=== PATIENT | male | born 1965 | race African-American/Black ===

== ENCOUNTER 2017-12-11 11:41 | Emergency (ER) | payer OTHER, SELFPAY ==
[2017-12-11 12:00] VITALS: BP 135/80; PULSE 81; RESP 17; TEMP 36.1; O2SAT 100
[2017-12-11 12:01] VITALS: BP 130/81; PULSE 81; RESP 17; TEMP 36.1; O2SAT 100; BMI 33.0
--- NOTE | 2017-12-11 12:55 | ED.DENTAL ---
HPI - Dental/Oral <GIL Vincent - Last Filed: 12/11/17 13:22> General Chief complaint: Dental/Oral Stated complaint: TOOTH PAIN Time Seen by Provider: 12/11/17 12:55 Source: patient Mode of arrival: ambulatory Limitations: no limitations History of Present Illness HPI Narrative: L lower molar starting hurting about 1 week ago MD Complaint: tooth pain Location: Tooth # (18) Onset (ago): week(s) (1) Duration: constant Severity: moderate Relieving factors: nothing Exacerbating factors: chewing Context: history of dental caries (cavity was filled in this tooth years ago) Related Data Home Medications Medication Instructions Recorded Confirmed metformin [Glucophage] 1 tab PO TID #0 05/06/17 triamcinolone acetonide 1 applic TOPICAL TID 14 Days #0 05/06/17 Previous Rx's Medication Instructions Recorded prednisone 50 mg PO AMCC 3 Days #0 tab 11/17/15 clindamycin HCl 300 mg PO Q6H #28 cap 07/20/16 tramadol 50 mg PO Q6HP PRN #20 tab 07/20/16 penicillin V potassium 500 mg PO QID #40 tab 12/11/17 tramadol [Ultram] 50 mg PO Q6H PRN #20 tab 12/11/17 Allergies Allergy/AdvReac Type Severity Reaction Status Date / Time lisinopril [LISINOPRIL] Allergy Unknown Verified 12/11/17 12:01 Review of Systems <GIL Vincent - Last Filed: 12/11/17 13:22> Constitutional Reports as per HPI, Reports system reviewed and no additional complaints, except as docu, Denies fatigue, Denies headache(s) and Denies poor appetite Eyes Reports system reviewed and no additional complaints, except as docu ENT Ears, Nose, Mouth, and Throat: Reports system reviewed and no additional complaints, except as docu, Reports as per HPI, Denies bleeding gums, Reports dental pain, Denies dysphagia, Denies ear discharge, Denies otalgia, Reports facial pain, Denies headache(s), Denies mouth lesions, Denies mouth pain, Denies nasal congestion, Denies nasal discharge, Denies neck mass, Denies neck pain, Denies nose pain, Denies post nasal drip, Reports sinus pain, Reports sinus pressure and Denies sore throat Respiratory Reports system reviewed and no additional complaints, except as docu and Denies cough Gastrointestinal Gastrointestinal: Denies dysphagia Musculoskeletal Reports as per HPI and Denies neck pain Neurologic Denies headache(s) Endocrine Denies fatigue and Denies flushing Exam <GIL Vincent - Last Filed: 12/11/17 13:22> Initial Vital Signs Initial Vital Signs: Vital Signs Temperature 97.0 F L 12/11/17 12:00 Pulse Rate 81 12/11/17 12:00 Respiratory Rate 17 12/11/17 12:00 Blood Pressure 135/80 12/11/17 12:00 Pulse Oximetry 100 12/11/17 12:00 Const General: cooperative, healthy appearing, comfortable, well developed and well groomed Nutritional Appearance: average body habitus and well nourished Orientation: alert HENMT Head: normal to inspection and normocephalic Ears: hearing grossly normal bilaterally, external ears normal and TM's normal bilaterally Nose: external nose normal, nares normal and nasal mucous membranes and turbinates normal Face and sinus: normal facial exam, sinuses tender and face asymmetric Mouth: oral mucosae normal, lip normal, tongue normal, oropharynx normal and moist mucous membranes Teeth and gingiva: dentition normal, gingiva normal and other (no obvious signs of infection in affected tooth, no gum swelling, obvious caries, filling in place) Throat: posterior oropharynx normal, tonsils normal and uvula midline Eyes General: appearance normal, both eyes and all related structures Eyelids: eyelids normal Conjunctivae: conjunctivae normal Sclera: sclerae normal Pupils: PERRL EOM: EOM intact bilaterally Neck Neck: normal visual inspection, full ROM, no meningeal signs, trachea midline, supple and No lymphadenopathy Resp Effort & Inspection: normal respiratory effort and able to speak in complete sentences Back/Spine/Pelvis Cervical Spine: cervical ROM normal Thoracic/Lumbar Spine: thoraco-lumbar ROM limited Skin General: turgor normal, dry skin and warm Neuro General: alert, awake and oriented x3 Cranial Nerves: CN's II-XI intact bilaterally Cognition: normal cognition Speech: speech normal Gait: normal gait Motor: muscle tone normal throughout Sensory Exam: no sensory deficits noted Extrem General: full ROM Psych Appearance: grossly normal and well kempt Mental Status: mental status grossly normal Speech and Movement: speech and movement normal Mood: congruent mood Affect: normal affect Attitude: cooperative Thought Process: normal Thought Content: normal Judgment: judgment good <Molly Gonzalez DO - Last Filed: 12/12/17 07:46> Initial Vital Signs Initial Vital Signs: Vital Signs Temperature 97.0 F L 12/11/17 12:00 Pulse Rate 81 12/11/17 12:00 Respiratory Rate 17 12/11/17 12:00 Blood Pressure 135/80 12/11/17 12:00 Pulse Oximetry 100 12/11/17 12:00 Course <GIL Vincent - Last Filed: 12/11/17 13:22> Vital Signs - 8 hr 12/11/17 12:00 12/11/17 12:01 Temperature 97.0 F L 97.0 F L Pulse Rate 81 81 Respiratory Rate 17 17 Blood Pressure 130/81 Blood Pressure [Right Arm] 135/80 Pulse Oximetry 100 100 <Molly Gonzalez DO - Last Filed: 12/12/17 07:46> Vital Signs - 8 hr 12/11/17 12:00 12/11/17 12:01 Temperature 97.0 F L 97.0 F L Pulse Rate 81 81 Respiratory Rate 17 17 Blood Pressure 130/81 Blood Pressure [Right Arm] 135/80 Pulse Oximetry 100 100 MDM - Dental/Oral <GIL Vincent - Last Filed: 12/11/17 13:22> Differential Diagnosis Likely gingival abscess, dental caries, toothache, dental abscess and fracture of tooth Discharge Plan Departure Patient Disposition: Home Clinical Impression: Pain, dental Discharge Date/Time: 12/11/17 13:48 Interventions: ED Discharge Assessment Last Done: 12/11/17 13:48 Instructions: DI for Dental Pain Prescriptions: New tramadol [Ultram] 50 mg tablet 50 mg PO Q6H PRN (Reason: pain) Qty: 20 RF: 0 penicillin V potassium 500 mg tablet 500 mg PO QID Qty: 40 RF: 0 No Action prednisone 50 MG tablet 50 mg PO AMCC 3 Days Qty: 0 RF: 0 clindamycin HCl 300 MG capsule 300 mg PO Q6H Qty: 28 RF: 0 tramadol 50 MG tablet 50 mg PO Q6HP PRNQty: 20 RF: 0 triamcinolone acetonide 0.5 % cream 1 applic Topical TID 14 Days Qty: 0 RF: 0 metformin [Glucophage] 500 MG tablet 1 tab PO TID Qty: 0 RF: 0 Referrals: Pratibha,Octavio, CONRADO [Physician] - Alexis Carbajal DDS [Non-Staff] - Provider,Conversion [Non-Staff] - Cisco Schroeder DDS [Physician] - (in 3-5 days ) <Molly Gonzalez DO - Last Filed: 12/12/17 07:46> Cosign ED Attending Mayra Attestation: I was immediately available in the department for consultation. Documentation has been reviewed. I agree with assessment and plan.
== END 2017-12-11 13:48 | disposition home or self-care (01) ==
PROVIDERS: Emergency Provider Nurse Practitioner
DX: K08.89 Other specified disorders of teeth and supporting structures (principal)
CPT/HCPCS: 99282

== ENCOUNTER → 2018-07-21 09:31 | Outpatient (CLI) | payer OTHER, SELFPAY ==
--- NOTE | 2018-07-21 09:34 | DI.RAD.S_ITS ---
PROCEDURE: XR LUMBAR SPINE 2-3V INDICATIONS: Chronic back pain, shoulder pain TECHNIQUE: 3 views of the lumbar spine were acquired. COMPARISON: None. FINDINGS: Bones: 5 [id number] vertebrae are present. There is normal bony alignment. No vertebral body compression fractures. No suspicious bony lesions. Mild to moderate multilevel endplate spur formation anteriorly. Mild to moderate disc height loss at multiple levels, most significant at L5-S1. Moderate to severe facet hypertrophy and sclerosis L4-5 and L5-S1. Soft tissues: Overlying bowel gas pattern is normal. No suspicious soft tissue calcifications. Mild atherosclerosis IMPRESSION: Mild to moderate multilevel endplate and disc degenerative change. Moderate lower lumbar facet arthropathy. Dictated by: Martine Smart M.D. on 07/21/2018 at 11:59 Approved by: Martine Smart M.D. on 07/21/2018 at 12:01
--- NOTE | 2018-07-21 09:34 | DI.RAD.S_ITS ---
PROCEDURE: XR SHOULDER RT MIN 2V INDICATIONS: Chronic back pain, shoulder pain TECHNIQUE: 3 views of the shoulder were acquired. COMPARISON: None. FINDINGS: Bones: No fractures or dislocations. Mild irregular contour of the glenoid surface and moderate humeral head spurring.. No suspicious bony lesions. Visualized ribs appear intact. Soft tissues: No suspicious soft tissue calcifications. Trace calcifications adjacent to the greater tuberosity at the rotator cuff insertion IMPRESSION: Mild glenohumeral joint OsteoArthritic change. Trace changes of the greater tuberosity suggesting calcific tendinitis of the rotator cuff tendons. Dictated by: Martine Smart M.D. on 07/21/2018 at 11:58 Approved by: Martine Smart M.D. on 07/21/2018 at 11:59
[2018-07-21 10:28] LABS: Add Manual Diff / Slide Review NO; Basophils Absolute Auto 100 /uL (0-100); Basophils Percent Auto 1.3 % (0-2); Eosinophils Absolute Auto 300 /uL (0-450); Eosinophils Percent Auto 3.5 % (2-4); Hematocrit 48.7 % (41-53); Hemoglobin 16.2 g/dL (13.5-17.5); Lymphocytes Absolute Auto 1900 /uL (1100-4500); Lymphocytes Percent Auto 26.4 % (25-40); Mean Corpuscular HGB Conc 33.3 % (30-36); Mean Corpuscular Hemoglobin 30.5 PG (26-34); Mean Corpuscular Volume 91.7 fL (80-100); Monocytes Absolute Auto 500 /uL (0-900); Monocytes Percent Auto 7.5 % (3-14); Neutrophils Absolute Auto 4400 /uL (1500-7000); Neutrophils Percent Auto 61.3 % (50-75); Platelet Count 266 X10^3/uL (150-400); Red Blood Cell Count 5.31 X10^6/uL (4.5-5.9); Red Cell Distribution Width 13.5 % (11.6-14.8); White Blood Cell Count 7.2 X10^3/uL (4.5-11.0)
[2018-07-21 10:37] LABS: Hemoglobin A1C% w Est Avg Glu 6.5 % (4.0-6.0)
[2018-07-21 10:51] LABS: Alanine Aminotransferase 42 IU/L (21-72); Albumin 4.4 g/dL (3.5-5.0); Albumin Globulin Ratio 1.3 (1.0-2.8); Alkaline Phosphatase 92 U/L (38-126); Aspartate Aminotransferase 42 IU/L (17-59); Bilirubin Total 0.8 mg/dL (0.2-1.3); Blood Urea Nitrogen 14 mg/dL (9-20); Calcium 9.3 mg/dL (8.4-10.2); Carbon Dioxide 28 mmol/L (22-32); Chloride 103 mmol/L (98-107); Cholesterol 154 mg/dL (140-199); Estimated Glomerular Filt Rate > 60.0 mL/min (>60); Globulin 3.5 g/dL (1.7-4.1); Glucose 124 mg/dL (70-100); HDL Cholesterol 41 mg/dL (40-60); HEMOLYSIS < 15 (0-50); LDL Cholesterol Calculated 78 mg/dL (<100); Potassium 4.5 mmol/L (3.4-5.1); Sodium 141 mmol/L (137-145); Total Protein 7.9 g/dL (6.3-8.2); Triglycerides 175 mg/dL (35-150)
[2018-07-21 11:19] LABS: Thyroid Stimulating Hormone 0.79 uIU/mL (0.47-4.68)
[2018-07-21 11:39] LABS: Appearance Urine UA CLEAR; Bilirubin Urine UA NEGATIVE (NEGATIVE); Color Urine UA YELLOW; Glucose Urine UA NEGATIVE (Negative); Ketones Urine UA TRACE (NEGATIVE); Leukocyte Esterase Urine UA NEGATIVE (NEGATIVE); Nitrite Urine UA NEGATIVE (Negative); Occult Blood Urine UA NEGATIVE (Negative); Protein Urine UA 1+ (Negative); Specific Gravity Urine UA 1.025 (1.000-1.035); Urobilinogen Urine UA 0.2 E.U./dL (0.2); pH Urine UA 6.5 (4.5-8.0)
== END ==
PROVIDERS: PCP Family Medicine; Visit Provider Family Medicine
DX: M25.511 Pain in right shoulder (principal); M19.011 Primary osteoarthritis, right shoulder; M54.9 Dorsalgia, unspecified; M47.816 Spondylosis without myelopathy or radiculopathy, lumbar region; M47.817 Spondylosis without myelopathy or radiculopathy, lumbosacral region; I10 Essential (primary) hypertension; R10.9 Unspecified abdominal pain; E78.5 Hyperlipidemia, unspecified; E11.9 Type 2 diabetes mellitus without complications; G89.29 Other chronic pain; Z51.81 Encounter for therapeutic drug level monitoring
CPT/HCPCS: 36415; 72100; 73030; 80053; 80061; 81003; 83036; 84443; 85025

== ENCOUNTER → 2018-08-12 10:49 | Outpatient (CLI) | payer OTHER, SELFPAY ==
--- NOTE | 2018-08-12 10:55 | DI.RAD.S_ITS ---
PROCEDURE: XR HAND LT MIN 3V INDICATIONS: pain in hands TECHNIQUE: 3 views of the hand(s) acquired. COMPARISON: None. FINDINGS: Bones: No fractures or dislocations. Carpal bones are normally aligned. No suspicious bony lesions. Moderate degenerative changes of the left hand are present, most pronounced involving the interphalangeal joints of the first and second digits. Moderate degenerative changes involving the basal joint of the thumb are present. There mild degenerative changes of the distal radial ulnar joint. Soft tissues: No suspicious soft tissue calcifications. IMPRESSION: Moderate degenerative changes of the left hand are most pronounced involving the first and second digits. Dictated by: Ron Covington M.D. on 08/12/2018 at 11:14 Approved by: Ron Covington M.D. on 08/12/2018 at 11:15
--- NOTE | 2018-08-12 10:55 | DI.RAD.S_ITS ---
PROCEDURE: XR HAND RT MIN 3V INDICATIONS: pain in hands TECHNIQUE: 3 views of the hand(s) acquired. COMPARISON: None. FINDINGS: Bones: No fractures or dislocations. Carpal bones are normally aligned. No suspicious bony lesions. Moderate degenerative changes of the right hand are identified involving the interphalangeal joint, basal joint of the thumb, and distal radioulnar joint. These findings are more prominent involving the interphalangeal joints of the third and fourth digits. Soft tissues: No suspicious soft tissue calcifications. IMPRESSION: 1. Moderate degenerative changes of the right hand are most pronounced involving the interphalangeal joints of the third and fourth digits. 2. No fractures. Dictated by: Ron Covington M.D. on 08/12/2018 at 10:29 Approved by: Ron Covington M.D. on 08/12/2018 at 10:30
== END ==
PROVIDERS: PCP Family Medicine; Visit Provider Family Medicine
DX: M79.642 Pain in left hand (principal); M79.641 Pain in right hand; M19.042 Primary osteoarthritis, left hand; M19.041 Primary osteoarthritis, right hand
CPT/HCPCS: 73130

== ENCOUNTER 2019-03-26 15:47 | Emergency (ER) | payer OTHER, SELFPAY ==
[2019-03-26 15:49] VITALS: BP 150/82; PULSE 72; RESP 13; TEMP 36.8; O2SAT 98
[2019-03-26 16:53] VITALS: BP 138/90; PULSE 64; RESP 20; O2SAT 99
--- NOTE | 2019-03-26 17:12 | ED_ITS ---
HPI - Fall <TAI Rouse-BC - Last Filed: 03/26/19 17:24> General Chief Complaint: Fall Stated Complaint: Fell and Hit Head Time Seen by Provider: 03/26/19 16:11 Source: patient Mode of arrival: Ambulatory Limitations: no limitations History of Present Illness HPI Narrative: The patient is a 53-year-old male current smoker with history of hypertension who presents with a chief complaint of a fall this morning. He states he slipped on the ice landed on his back hitting his head. He denies any neck or back pain, and states he has been working since these falls. He states that the fall happened approximately 730 this morning. He states he has worked all day since. He denies any seizures, confusion, nausea vomiting, states that he might have lost consciousness for a few seconds he states that his memories of the event are fuzzy. Related Data Home Medications Medication Instructions Recorded Confirmed hydrochlorothiazide 12.5 mg tablet 12.5 mg PO DAILY 07/18/18 03/26/19 losartan 50 mg tablet 50 mg PO DAILY 07/18/18 03/26/19 metformin 500 mg tablet 500 mg PO BID 07/18/18 03/26/19 simvastatin 40 mg tablet 40 mg PO BEDTIME 07/18/18 03/26/19 atenolol 50 mg PO DAILY 03/26/19 03/26/19 sildenafil [Viagra] 25 mg PO PRN PRN 03/26/19 03/26/19 Previous Rx's Medication Instructions Recorded meloxicam 15 mg tablet 15 mg PO DAILY #30 tab 08/09/18 Allergies Allergy/AdvReac Type Severity Reaction Status Date / Time lisinopril [LISINOPRIL] AdvReac Mild cough Verified 08/09/18 15:40 Review of Systems <TAI Rouse-BC - Last Filed: 03/26/19 17:24> Review of Systems Narrative: GENERAL: Denies chills, fatigue, malaise, fever, sweats. HEENT: Denies sinus pain, ear pain, sore throat, difficulty swallowing, dizziness. RESPIRATORY: Denies dyspnea, cough, wheezing, hemoptysis, sputum. CARDIOVASCULAR: Denies chest pain, palpitations, orthopnea, edema, GASTROINTESTINAL: Denies nausea, vomiting, abdominal pain, diarrhea, constipation, melena. : Denies dysuria, frequency, incontinence, hematuria, urinary retention. MUSCULOSKELETAL: denies weakness, joint pain, or bony pain SKIN: Denies rash, skin lesions, or other NEUROLOGIC: See HPI PSYCHIATRIC: No concerning psychosocial issues. 12 point review of systems is negative except for those stated above Patient History <Ellen CotoFLOYD andersen - Last Filed: 03/26/19 17:24> Social History Smoking Status: Current every day smoker Tobacco: How many years used: 32 alcohol intake: current (Rarely) Smoking Status: Current every day smoker Substance Use Type: does not use Exam <Ellen CotoFLOYD andersen - Last Filed: 03/26/19 17:24> Narrative Exam Narrative: GENERAL: This is a well-nourished, well-developed patient, in no acute distress HEAD: Atraumatic. Normocephalic. No temporal or scalp tenderness. EYES: Pupils equal round and reactive. Extraocular motions intact. No scleral icterus. No injection or drainage. ENT: Nose without bleeding, purulent drainage or septal hematoma. Throat without erythema, tonsillar hypertrophy or exudate. Uvula midline. Airway patent. NECK: Trachea midline. No JVD or lymphadenopathy. Supple, nontender, no meningeal signs. CARDIOVASCULAR: Regular rate and rhythm RESPIRATORY: NO COUGH. NO INCREASED RESPIRATORY EFFORT. NO ACCESSORY MUSCLE USE. EXTREMITIES: No clubbing, cyanosis, or edema. No joint tenderness, effusion, or edema noted. BACK: Nontender without deformity or crepitance. No flank tenderness. No pain to CT or L-spine palpation. NEURO: AOx3. Interactive. Strength is equal upper lower extremities bilaterally. No gross cranial nerve deficit. Able to spell WORLD backwards. SKIN: No rash or erythema. No Ortiz signs. No periorbital ecchymosis. Visual ecchymosis laceration or abrasion noted on head or back. Initial Vital Signs Initial Vital Signs: Vital Signs Temperature 98.3 F 03/26/19 15:49 Pulse Rate 72 03/26/19 15:49 Respiratory Rate 13 03/26/19 15:49 Blood Pressure 150/82 H 03/26/19 15:49 Pulse Oximetry 98 03/26/19 15:49 <Molly Gonzalez DO - Last Filed: 03/27/19 09:11> Initial Vital Signs Initial Vital Signs: Vital Signs Temperature 98.3 F 03/26/19 15:49 Pulse Rate 72 03/26/19 15:49 Respiratory Rate 13 03/26/19 15:49 Blood Pressure 150/82 H 03/26/19 15:49 Pulse Oximetry 98 03/26/19 15:49 Scores <FLOYD Rouse - Last Filed: 03/26/19 17:24> GCS [place] coma scale eye opening: Spontaneous [place] coma scale verbal response: Orientated [place] coma scale motor response: Obey commands [place] coma scale total score: 15 Nexus Score for C-Spine Focal Neurologic deficit present: No Midline spinal tenderness present: No Altered level of conciousness present: No Intoxication present: No Distracting Injury Present: No Nexus Criteria for C-spine: 0 Course <FLOYD Rouse - Last Filed: 03/26/19 17:24> Vital Signs Vital signs: Vital Signs - 8 hr 03/26/19 15:49 03/26/19 16:53 Temperature 98.3 F Pulse Rate 72 64 Respiratory Rate 13 20 Blood Pressure 150/82 H Blood Pressure [Right Arm] 138/90 Pulse Oximetry 98 99 <Molly Gonzalez DO - Last Filed: 03/27/19 09:11> Vital Signs Vital signs: Vital Signs - 8 hr 03/26/19 15:49 03/26/19 16:53 Temperature 98.3 F Pulse Rate 72 64 Respiratory Rate 13 20 Blood Pressure 150/82 H Blood Pressure [Right Arm] 138/90 Pulse Oximetry 98 99 MDM - Fall <FLOYD Rouse - Last Filed: 03/26/19 17:24> MDM Narrative Medical decision making narrative: The patient is a 53-year-old male who presents with a chief complaint of a ground level fall and hitting his head at 7:30 a.m. this morning. Questionable LOC. The patient is alert oriented, GCS 15, C-spine clear by nexus criteria. His exam and history does correlate with a concussion. However patient does not want a head CT at this point time, I do not see any red flags that require head CT at this point time. I discussed at length the importance of follow-up with his primary care provider, the importance of brain rest, monitor for neurological changes, and coming back to the emergency department for any acute concerns. Patient has no questions or concerns upon discharge and states understanding of return precautions as well as follow-up care. Discharge Plan Departure Patient Disposition: Home Clinical Impression: Concussion with loss of consciousness Qualifiers: Encounter type: initial encounter Qualified Code(s): S06.0X9A - Concussion with loss of consciousness of unspecified duration, initial encounter Discharge Date/Time: 03/26/19 17:28 Instructions: DI for Concussion, True or False: A Person With a Serious Head Injury or Concussion Should Be , How to Prevent Falls, DI for Postconcussion Syndrome Activity Restrictions/Additional Instructions: Your symptoms correlate with concussion He did not want a head CT today, I do not see any red flags to get 1 at this point time. Please monitor for acute changes such as neurological changes, incontinence of bowel, incontinence of bladder, seizure activity etcetera. Please come back to the emergency department for any acute concerns rodgers As I discussed the most important thing for use brain rest at this point time. Please follow up with primary care provider in the next few days. If they do not see [facility] [email or web address] claims, you can contact [facility] [email or web address] for a follow-up provider Please go home and rest. I've given you a note for few days off of work. Prescriptions: No Action losartan 50 mg tablet 50 mg PO DAILY RF: 0 simvastatin 40 mg tablet 40 mg PO BEDTIME RF: 0 hydrochlorothiazide 12.5 mg tablet 12.5 mg PO DAILY RF: 0 metformin 500 mg tablet 500 mg PO BID RF: 0 meloxicam [Mobic] 15 mg tablet 15 mg PO DAILY Qty: 30 RF: 2 sildenafil [Viagra] 25 mg tablet 25 mg PO PRN PRN (Reason: Erectile Dysfunction) RF: 0 atenolol 50 mg tablet 50 mg PO DAILY RF: 0 Referrals: Lenora,Lin, DO [Primary Care Provider] - Stand Alone Forms: Work Release Note
== END 2019-03-26 17:28 | disposition home or self-care (01) ==
PROVIDERS: Emergency Provider Nurse Practitioner Family; PCP Family Medicine
DX: S06.0X9A Concussion with loss of consciousness of unspecified duration, initial encounter (principal); W00.0XXA Fall on same level due to ice and snow, initial encounter; Y99.0 Civilian activity done for income or pay
CPT/HCPCS: 99281; 99282

== ENCOUNTER 2019-12-15 17:27 | Emergency (ER) | payer OTHER, SELFPAY ==
[2019-12-15 17:39] VITALS: BP 135/79; PULSE 83; RESP 15; TEMP 36.6; O2SAT 98; BMI 33.7
--- NOTE | 2019-12-15 18:26 | ED.URI ---
HPI - URI/Sore Throat General Chief Complaint: Upper Respiratory Symptoms Stated Complaint: Runny Nose, Scratchy Throat,Coughing Time Seen by Provider: 12/15/19 18:05 Source: patient Mode of arrival: Ambulatory Limitations: no limitations History of Present Illness HPI Narrative: 54-year-old daily smoker with noncontributory medical history presents with a chief complaint of runny nose, sneezing, scratchy throat and a dry hacking cough since this morning. Denies any fever, body aches or chills. He has had no nausea, vomiting or diarrhea. MD Complaint: cough, sore throat, rhinorrhea and nasal congestion Onset (ago): hour(s) Duration: constant Severity: moderate Relieving factors: nothing Exacerbating factors: nothing Description of mucous: clear Able to tolerate fluids by mouth: Yes Associated symptoms: cough Treatments prior to arrival: none Related Data Home Medications Medication Instructions Recorded Confirmed hydrochlorothiazide 12.5 mg tablet 12.5 mg PO DAILY 07/18/18 03/26/19 losartan 50 mg tablet 50 mg PO DAILY 07/18/18 03/26/19 metformin 500 mg tablet 500 mg PO BID 07/18/18 03/26/19 simvastatin 40 mg tablet 40 mg PO BEDTIME 07/18/18 03/26/19 atenolol 50 mg PO DAILY 03/26/19 03/26/19 sildenafil [Viagra] 25 mg PO PRN PRN 03/26/19 03/26/19 Previous Rx's Medication Instructions Recorded meloxicam 15 mg tablet 15 mg PO DAILY #30 tab 08/09/18 Allergies Allergy/AdvReac Type Severity Reaction Status Date / Time lisinopril [LISINOPRIL] AdvReac Mild cough Verified 12/15/19 17:39 Review of Systems Constitutional Constitutional: Denies chills, Denies fatigue, Denies fever(s), Denies frequent falls, Denies lethargy and Denies weakness Eyes Eyes: Denies change in vision, Denies eye discharge, Denies irritation and Denies loss of vision ENT Ears, Nose, Mouth, and Throat: Denies change in voice, Denies dizziness, Reports nasal congestion, Denies neck pain, Reports sore throat and Denies throat swelling Cardiovascular Cardiovascular: Denies chest pain, Denies irregular heart rhythm, Denies lightheadedness, Denies palpitations, Denies dyspnea, Denies dyspnea on exertion and Denies orthopnea Respiratory Respiratory: Reports cough, Denies dyspnea, Denies dyspnea on exertion and Denies wheezing Gastrointestinal Gastrointestinal: Denies abdominal pain, Denies change in bowel habits, Denies diarrhea, Denies nausea and Denies vomiting Musculoskeletal Musculoskeletal: Denies neck pain and Denies numbness Integumentary/Breasts Skin/Breast: Denies pruritus, Denies erythema, Denies rash and Denies wounds Neurologic Neurologic: Denies behavioral changes, Denies confusion, Denies dizziness, Denies frequent falls, Denies loss of vision, Denies numbness and Denies weakness Psychiatric Psychiatric: Denies anxiety, Denies behavioral changes, Denies confusion, Denies depression, Denies homicidal ideation and Denies suicidal ideation Endocrine Endocrine: Denies fatigue, Denies flushing and Denies palpitations Hematologic/Lymphatic Hematologic/Lymphatic: Denies easy bruising Allergic/Immunologic Allergic/Immunologic: Denies urticaria, Denies throat swelling and Denies wheezing Patient History Medical History Ankle pain (Chronic) Back pain (Chronic) Cataracts, bilateral (Chronic ~2014) Diabetes mellitus (Chronic) Eczema (Chronic ~1997) Foot pain (Chronic) Hypertension (Chronic ~2014) Knee pain (Chronic) Positive PPD (Resolved ~1983) Shoulder pain (Chronic) Tuberculosis (Resolved ~1983) Surgical History Anesthesia (Resolved) History of left knee surgery (Resolved ~1978) History of left knee surgery (Resolved ~2003) Family History Father Hyperlipidemia Hypertension Mother Hyperlipidemia Hypertension Brother Diabetes mellitus Hyperlipidemia Hypertension Social History Smoking Status: Current every day smoker Tobacco: How many years used: 32 alcohol intake: current (Rarely) Smoking Status: Current every day smoker alcohol intake frequency: holidays/special occasions only Substance Use Type: does not use Exam Narrative Exam Narrative: GENERAL: [54] year old patient appears stated age. Well-nourished, well-developed patient, in mild distress. HEAD: Atraumatic. Normocephalic. EYES: Pupils equal round and reactive. Extraocular motions intact. No scleral icterus. No injection or drainage. ENT: Clear drainage bilateral nares, clear posterior pharynx drainage, no pharyngeal erythema, exudate or swelling. No tender anterior or posterior cervical lymphadenopathy. Tympanic membranes clear bilaterally with normal landmarks NECK: Trachea midline. Non tender CARDIOVASCULAR: Regular rate and rhythm without murmurs, gallops, or rubs. RESPIRATORY: Clear to auscultation. Breath sounds equal bilaterally. No wheezes, rales, or rhonchi. GASTROINTESTINAL: Abdomen soft, non-tender, nondistended. EXTREMITIES: No edema or joint tenderness. BACK: Nontender without deformity or crepitance. No flank tenderness. NEURO: AOx3. SKIN: No rash or erythema of visible areas Initial Vital Signs Initial Vital Signs: Vital Signs Temperature 97.9 F 12/15/19 17:39 Pulse Rate 83 12/15/19 17:39 Respiratory Rate 15 12/15/19 17:39 Blood Pressure 135/79 12/15/19 17:39 Pulse Oximetry 98 12/15/19 17:39 Course Orders Ordered: ED Orders 12/15/19 18:31 XR chest 1V Stat 12/15/19 18:38 COVID19 -ED/INPAT/OR/L&D Stat Vital Signs Vital signs: Vital Signs - 8 hr 12/15/19 17:39 12/15/19 19:50 Temperature 97.9 F Pulse Rate 83 70 Respiratory Rate 15 17 Blood Pressure 135/79 130/90 Pulse Oximetry 98 99 MDM - URI/Sore Throat Lab Data Labs: Lab Results 12/15/19 Range/Units 18:38 COVID-19 PCR Negative (Negative) Imaging Data Chest x-ray: Radiologist's Impression: 3 DO Nhan Serna Patient Imaging - Yakov Henderson V 54 M 1965 ACTIVITY DATE EXAM STATUS AUTHOR 12/15/19 18:[address] [address] XRay Report Signed Patient: Yakov Henderson VMR#: [id number] : 1965Acct:[id number] Age/Sex: 54 / MDate of Service: 12/15/19 Loc: ED Accession Number: [id number] Procedure: XR chest 1V Ordering Provider: Ruben Tabares D.O. PROCEDURE: XR CHEST 1V INDICATIONS: cough, smoker, sputum TECHNIQUE: One view of the chest was acquired. COMPARISON: [facility], , CHEST 2 VIEW, 06/03/2012, 1:52. FINDINGS: Surgical changes and devices: None. Lungs and pleura: There is mild prominence of the central pulmonary vasculature. No acute airspace consolidation is seen. There is no pleural effusion or pneumothorax. Mediastinum: Mediastinal contours appear normal. Heart size is within normal limits. Atherosclerotic calcifications are seen in the aorta. Bones and chest wall: No suspicious bony lesions. Overlying soft tissues appear unremarkable. Degenerative changes are seen in the spine. IMPRESSION: Mild prominence of the central pulmonary vasculature. Heart size is within normal limits. No focal airspace opacity is seen. Dictated by: Elijah Castanon M.D. on 12/15/2019 at 18:50 Approved by: Elijah Castanon M.D. on 12/15/2019 at 18:51 Discharge Plan Departure Patient Disposition: Home Clinical Impression: Viral upper respiratory infection Discharge Date/Time: 12/15/19 19:51 Instructions: DI for Viral Upper Respiratory Infection -- Adult Activity Restrictions/Additional Instructions: *You have been diagnosed with [viral upper respiratory infection, chest x-ray was clear and your COVID-19 swab is negative] *What to do: *Take medications as directed: Please consider [id number] cough and cold medications with an antihistamine such as Vanessa, Zyrtec or Benadryl. These medications will dry the secretions which are causing your nasal congestion and likely contributing to the scratchy throat and cough. *Follow up with your primary care provider in 2-3 days, call for an appointment. Let them know you were seen in the Emergency Department and that we ask that you be seen in follow up *Return to ER if you should have any new, worsening or concerning symptoms Prescriptions: No Action losartan 50 mg tablet 50 mg PO DAILY RF: 0 simvastatin 40 mg tablet 40 mg PO BEDTIME RF: 0 hydrochlorothiazide 12.5 mg tablet 12.5 mg PO DAILY RF: 0 metformin 500 mg tablet 500 mg PO BID RF: 0 meloxicam [Mobic] 15 mg tablet 15 mg PO DAILY Qty: 30 RF: 2 sildenafil [Viagra] 25 mg tablet 25 mg PO PRN PRN (Reason: Erectile Dysfunction) RF: 0 atenolol 50 mg tablet 50 mg PO DAILY RF: 0 Referrals: Lin Cooley DO [Primary Care Provider] -
--- NOTE | 2019-12-15 18:31 | DI.RAD.S_ITS ---
PROCEDURE: XR CHEST 1V INDICATIONS: cough, smoker, sputum TECHNIQUE: One view of the chest was acquired. COMPARISON: [facility], , CHEST 2 VIEW, 06/03/2012, 1:52. FINDINGS: Surgical changes and devices: None. Lungs and pleura: There is mild prominence of the central pulmonary vasculature. No acute airspace consolidation is seen. There is no pleural effusion or pneumothorax. Mediastinum: Mediastinal contours appear normal. Heart size is within normal limits. Atherosclerotic calcifications are seen in the aorta. Bones and chest wall: No suspicious bony lesions. Overlying soft tissues appear unremarkable. Degenerative changes are seen in the spine. IMPRESSION: Mild prominence of the central pulmonary vasculature. Heart size is within normal limits. No focal airspace opacity is seen. Dictated by: Elijah Castanon M.D. on 12/15/2019 at 18:50 Approved by: Elijah Castanon M.D. on 12/15/2019 at 18:51
[2019-12-15 19:20] LABS: COVID19 -Nasal RAPID Negative (Negative)
[2019-12-15 19:50] VITALS: BP 130/90; PULSE 70; RESP 17; O2SAT 99
== END 2019-12-15 19:51 | disposition home or self-care (01) ==
PROVIDERS: Emergency Provider Emergency Medicine; PCP Family Medicine
DX: J06.9 Acute upper respiratory infection, unspecified (principal); R05 Cough; J02.9 Acute pharyngitis, unspecified
CPT/HCPCS: 71045; 87635; 99281; 99283

== ENCOUNTER 2020-01-31 10:39 | Emergency (ER) | payer OTHER, SELFPAY ==
[2020-01-31 10:40] VITALS: BP 152/98; PULSE 66; RESP 14; TEMP 36.5; O2SAT 99; BMI 33.0
--- NOTE | 2020-01-31 10:44 | ED.UPPEXIN ---
HPI - Extremity Injury (Upper) General Chief Complaint: Extremity Injury, Upper Stated Complaint: hurt left wrist at work Time Seen by Provider: 01/31/20 10:42 Source: patient Mode of arrival: Ambulatory Limitations: no limitations History of Present Illness HPI narrative: Patient is a 54-year-old male who presents with left wrist pain after falling at work today. 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 He denies any back pain head injury or loss of consciousness. He has no numbness tingling or weakness. MD complaint: injury to: left and wrist Related Data Home Medications Medication Instructions Recorded Confirmed hydrochlorothiazide 12.5 mg tablet 12.5 mg PO DAILY 07/18/18 03/26/19 losartan 50 mg tablet 50 mg PO DAILY 07/18/18 03/26/19 metformin 500 mg tablet 500 mg PO BID 07/18/18 03/26/19 simvastatin 40 mg tablet 40 mg PO BEDTIME 07/18/18 03/26/19 atenolol 50 mg PO DAILY 03/26/19 03/26/19 sildenafil [Viagra] 25 mg PO PRN PRN 03/26/19 03/26/19 Previous Rx's Medication Instructions Recorded meloxicam 15 mg tablet 15 mg PO DAILY #30 tab 08/09/18 Allergies Allergy/AdvReac Type Severity Reaction Status Date / Time lisinopril [LISINOPRIL] AdvReac Mild cough Verified 01/31/20 10:44 Review of Systems Review of Systems Narrative: GENERAL: Denies chills,fever HEENT: Denies throat pain RESPIRATORY: Denies dyspnea, cough, wheezing CARDIOVASCULAR: Denies chest pain, palpitations GASTROINTESTINAL: Denies nausea, vomiting MUSCULOSKELETAL: See HPI SKIN: No rash, no laceration, no pruritus NEUROLOGIC: Denies weakness, dizziness, headache, numbness 8 point review of systems is negative except for those stated above and HPI Patient History Medical History (Updated 01/31/20 @ 11:11 by Molly Gonzalez DO) Ankle pain Back pain Cataracts, bilateral (~2014) Diabetes mellitus Eczema (~1997) Foot pain Hypertension (~2014) Knee pain Positive PPD (~1983) Shoulder pain Tuberculosis (~1983) Surgical History Anesthesia History of left knee surgery (~1978) History of left knee surgery (~2003) Family History Father Hyperlipidemia Hypertension Mother Hyperlipidemia Hypertension Brother Diabetes mellitus Hyperlipidemia Hypertension Social History Smoking Status: Current every day smoker Tobacco: How many years used: 32 alcohol intake: current (Rarely) Smoking Status: Current every day smoker alcohol intake frequency: holidays/special occasions only Substance Use Type: does not use Exam Initial Vital Signs Initial Vital Signs: Vital Signs Temperature 97.7 F 01/31/20 10:40 Pulse Rate 66 01/31/20 10:40 Respiratory Rate 14 01/31/20 10:40 Blood Pressure 152/98 H 01/31/20 10:40 Pulse Oximetry 99 01/31/20 10:40 GENERAL: Well-appearing, well-nourished and in no acute distress. CARDIOVASCULAR: peripheral pulses in tact, cap refill <2 sec RESPIRATORY: No respiratory distress, speaks in full sentences without difficulty EXTREMITIES: Normal range of motion, no clubbing or edema. Neurovascularly intact Left wrist no gross bony deformity the pronation and supination no pain at elbow distal radial pulse intact radial median and ulnar nerve motor and sensory intact NEUROLOGICAL: Cranial nerves II through XII grossly intact. Normal gait and speech. SKIN: Warm, dry, no petechiae, no rashes or lesions. Procedures Orthopedic Splinting/Casting Injury #1: Side: left Upper Extremity Injury Location: wrist Upper Extremity Immobilizer: thumb spica Post splinting neuro exam: intact Placed by: Nursing Course Orders Ordered: ED Orders 01/31/20 10:44 XR wrist LT min 3V Stat Discontinued Medications Ibuprofen (Ibuprofen 400 Mg Tablet) 800 mg PO NOW ONE Stop: 01/31/20 11:15 Last Admin: 01/31/20 11:24 Dose: 800 mg Documented by: SHANE Vital Signs Vital signs: Vital Signs - 8 hr 01/31/20 11:30 Pulse Rate 58 L Blood Pressure 120/80 Pulse Oximetry 99 MDM - Extremity Injury (Upper) Imaging Data Extremity x-ray #1: Radiologist's Impression: PROCEDURE: XR WRIST LT MIN 3V INDICATIONS: Left wrist pain TECHNIQUE: 4 views of the wrist were acquired. COMPARISON: None. FINDINGS: Bones: No fracture or dislocation. There are degenerative changes of the 1st carpometacarpal joint. Scaphoid view: Normal scaphoid Soft tissues: No suspicious soft tissue calcifications. IMPRESSION: 1. No acute abnormality. 2. Degenerative changes of the 1st carpometacarpal joint consistent with osteoarthritis. Dictated by: Denton Ma M.D. on 01/31/2020 at 11:03 Discharge Plan Departure Patient Disposition: Home Clinical Impression: Left wrist sprain Qualifiers: Encounter type: initial encounter Qualified Code(s): S63.502A - Unspecified sprain of left wrist, initial encounter Instructions: DI for Wrist Sprain Activity Restrictions/Additional Instructions: *You have been diagnosed with left wrist sprain *What to do: At this time no broken bones are seen. Recommend wearing a Velcro wrist splint as needed. Increase activity as tolerated, elevate ice 20-30 minutes at a time *Continue to take medications as directed Ibuprofen 600 mg every 6-8 hours if needed for [id number] pain *Follow up with your primary care provider in 2-3 days *Return to ER if you should have increasing weakness numbness or tingling or any new, worsening or concerning symptoms Prescriptions: No Action losartan 50 mg tablet 50 mg PO DAILY RF: 0 simvastatin 40 mg tablet 40 mg PO BEDTIME RF: 0 hydrochlorothiazide 12.5 mg tablet 12.5 mg PO DAILY RF: 0 metformin 500 mg tablet 500 mg PO BID RF: 0 meloxicam [Mobic] 15 mg tablet 15 mg PO DAILY Qty: 30 RF: 2 sildenafil [Viagra] 25 mg tablet 25 mg PO PRN PRN (Reason: Erectile Dysfunction) RF: 0 atenolol 50 mg tablet 50 mg PO DAILY RF: 0 Referrals: [facility] [Provider Group]
[2020-01-31] MEDS: IBUPROFEN 400 MG TABLET 800 MG PO (11:24)
[2020-01-31 11:30] VITALS: BP 120/80; PULSE 58; O2SAT 99
== END 2020-01-31 11:31 | disposition home or self-care (01) ==
LOC: ED 11:45
PROVIDERS: Emergency Provider Emergency Medicine
DX: S63.502A Unspecified sprain of left wrist, initial encounter (principal); W19.XXXA Unspecified fall, initial encounter
CPT/HCPCS: 73110; 99281; 99283

== ENCOUNTER 2020-09-09 15:15 | Outpatient (RCR) | payer OTHER, SELFPAY ==
--- NOTE | 2020-06-27 16:15 | PT.OIE ---
Current Diagnoses Pain in right shoulder (06/27/20) Pain in left shoulder (06/27/20) Pain in unspecified knee (06/27/20) Lumbago with sciatica, unspecified side (06/27/20) Past Medical History (Last Reviewed 01/31/20 @ 10:53 by Molly Gonzalez DO) Ankle pain Back pain Cataracts, bilateral (~2014) Diabetes mellitus Eczema (~1997) Foot pain Hypertension (~2014) Knee pain Positive PPD (~1983) Shoulder pain Tuberculosis (~1983) Past Surgical History (Last Reviewed 01/31/20 @ 10:53 by Molly Gonzalez DO) Anesthesia History of left knee surgery (~1978) History of left knee surgery (~2003) Visit Care Team Role Provider Type Jameson Banks DO Attending Provider Non-Staff Primary Care Provider Referring Provider Specialty: [facility] Address: [address] [place] [address], [facility] Email: Physical Therapy Initial Evaluation PT-OP-A Visit Information Start: 06/27/20 08:14 Freq: Status: Active Protocol: Document 06/27/20 08:15 AMB (Rec: 06/27/20 16:01 AMB [email or web address]) Out-Patient Physical Therapy Visit Information Visit Information Visit Type Initial Evaluation Visit Start Time 08:15 Visit Stop Time 09:00 Total Visit Minutes 45 Visit Number 2 PT-OP-B Current Condition Start: 06/27/20 08:14 Freq: Status: Active Protocol: Document 06/27/20 08:16 AMB (Rec: 06/27/20 08:30 AMB [id number]) Current Condition History of Current Condition Onset Date Current Complaints R>L Shoulder, L>R knee, back/ hip pain History of Current Condition Mumtaz retired from the [employer] in 2003 the pain has been getting worse, bilateral knees, shoulder was hurt playing raquetball. RHD worked overhead, lifting. Lifting heavy constantly. 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 Feels the knees with walking downhill. Uphill feels the back. Lying in bed can get burning in bilateral outside of thighs. Hx L meniscus surgery around time of longterm from [facility]. Prior Treatments and Tests Prior PT for R shoulder liked the kinesiotape- that helped while going there, but then the pain came back Treatment Goals Patient/Caregiver Goals Used to workout 3-4 years ago. Prior Functional Status Baseline Function- ADL's Independent Baseline Function- Mobility Independent Personal Factors Other Personal Factors That May Effect Hx TB, DMII, hypertension Therapy/Recovery PT-OP-C Subjective Start: 06/27/20 08:14 Freq: Status: Active Protocol: Document 06/27/20 08:15 AMB (Rec: 06/27/20 16:06 AMB [email or web address]) Patient Questionnaires Lower Extremity Functional Scale LEFS Score 42 Oswestry Low Back Index Oswestry Score 20 Quick Dash- Upper Extremity Quick Dash UE Score 47 Quick Dash UE Impairment 40 to 59% Impaired (Score 40- 59) OP-PT Pain Assessment Comments Pain Comments Left shoulder 4/10, Right shoulder 5/10, low back 4/10, R knee 4/10, left knee 5/10 PT-OP-K Range of Motion Start: 06/27/20 08:14 Freq: Status: Active Protocol: Document 06/27/20 08:15 AMB (Rec: 06/27/20 16:11 AMB [email or web address]) Lumbar Spine Range of Motion Lumbar Spine Active Degrees Testing Position Standing Flexion 20 Extension 15 Lateral Flexion Left 10 Lateral Flexion Right 10 Shoulder Goniometric Range of Motion Shoulder Right Passive Testing Position Supine Flexion 80 Abduction 90 External Rotation at 0 degrees Abduction 50 Left Passive Testing Position Supine Flexion 100 Abduction 90 External Rotation at 0 degrees Abduction 80 Knee Goniometric Range of Motion Knee Right Flexion Active (degrees) 120 Extension Active (degrees) 0 Left Patient Position Supine Flexion Passive (degrees) 100 Extension Passive (degrees) 15 PT-OP-T Assessment and Plan Start: 06/27/20 08:14 Freq: Status: Active Protocol: Document 06/27/20 08:15 AMB (Rec: 06/30/20 16:14 AMB [id number]) Physical Therapy Assessment Rehab Potential Rehabilitation Potential Good Evaluation Complexity Number of Personal Factors/Comorbidities 3 or More Number of Body Systems Impaired 4 or More Clinical Presentation at Evaluation Evolving Impairments Impairments Activity Tolerance,Functional Activities,Pain,ROM Goals Three Impairment Functional activities Short Term Goal (STG) Yakov will walk for 1 mile with knee pain of 3/10 or less . STG Duration 5 weeks Senior Living Goal (LTG) Yakov will lift 10# to shoulder height with pain of 3 /10 or less. LTG Duration 10 weeks Two Impairment Knee ROM Short Term Goal (STG) Yakov will improve his L knee extension to missing 5 degrees. STG Duration 5 weeks One Impairment Shoulder ROM Short Term Goal (STG) Mumtaz will improve his R shoulder PROM to 110 degrees of flexion. STG Duration 5 weeks LTG Duration 10 weeks Assessment Summary Assessment Mumtaz attends physical therapy with multiple chronic pain issues. The biggest problems are his left knee and right shoulder. He has considerable stiffness in both of these joints, and in his other knee and shoulder and low back. This makes it painful to do his work, walk the dog, and he has stopped exercising much because of the pain. Unfortunately due to time constraints it was difficult to fully evaluate all of his painful joints that had referrals, but considering what was evaluated, his range of motion and strength are quite impaired. He will benefit from physical therapy to improve his range of motion and strength as much as possible without further increasing his pain. 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 Physical Therapy Plan Frequency and Duration Frequency of Treatment 1x/Week Duration of Treatment 10 weeks Plan of Care Start Date 06/27/20 Plan of Care End Date 09/05/20 Therapeutic Interventions Therapeutic Interventions Home Exercise Program,Joint Mobilizations,Manual Therapy, Neuromuscular Re-education, Self-Care/Home Management, Therapeutic Activities, Therapeutic Exercises Modalities Cold Pack/Ice Massage,Electric Stimulation,Hot Packs, Traction- Mechanical, Ultrasound Next Visit Focus/Plan Next Note Type Treatment Note Next Visit Plan Begin with HEP instruction in AAROM/PROM/isometrics for shoulders and L knee extension ROM.
--- NOTE | 2020-06-30 16:16 | PT.OPPOC ---
Physical, Occupational & Speech Therapy At [facility] Current Diagnoses Pain in right shoulder (06/27/20) Pain in left shoulder (06/27/20) Pain in unspecified knee (06/27/20) Lumbago with sciatica, unspecified side (06/27/20) Visit Care Team Role Provider Type Jameson Banks DO Attending Provider Non-Staff Primary Care Provider Referring Provider Specialty: Family Practice Address: [address] [place] [address], [id number] Email: Plan Of Care PT-OP-T Assessment and Plan Start: 06/27/20 08:14 Freq: Status: Active Protocol: Document 06/27/20 08:15 AMB (Rec: 06/30/20 16:14 AMB [id number]) Physical Therapy Assessment Rehab Potential Rehabilitation Potential Good Evaluation Complexity Number of Personal Factors/Comorbidities 3 or More Number of Body Systems Impaired 4 or More Clinical Presentation at Evaluation Evolving Impairments Impairments Activity Tolerance,Functional Activities,Pain,ROM Goals Three Impairment Functional activities Short Term Goal (STG) Yakov will walk for 1 mile with knee pain of 3/10 or less . STG Duration 5 weeks Half-Way Goal (LTG) Yakov will lift 10# to shoulder height with pain of 3 /10 or less. LTG Duration 10 weeks Two Impairment Knee ROM Short Term Goal (STG) Yakov will improve his L knee extension to missing 5 degrees. STG Duration 5 weeks One Impairment Shoulder ROM Short Term Goal (STG) Mumtaz will improve his R shoulder PROM to 110 degrees of flexion. STG Duration 5 weeks LTG Duration 10 weeks Assessment Summary Assessment Mumtaz attends physical therapy with multiple chronic pain issues. The biggest problems are his left knee and right shoulder. He has considerable stiffness in both of these joints, and in his other knee and shoulder and low back. This makes it painful to do his work, walk the dog, and he has stopped exercising much because of the pain. Unfortunately due to time constraints it was difficult to fully evaluate all of his painful joints that had referrals, but considering what was evaluated, his range of motion and strength are quite impaired. He will benefit from physical therapy to improve his range of motion and strength as much as possible without further increasing his pain. He has had prior R shoulder PT which did help, but only while he was going, so he will benefit from PT that he can continue with [employer] intermediary. Physical Therapy Plan Frequency and Duration Frequency of Treatment 1x/Week Duration of Treatment 10 weeks Plan of Care Start Date 06/27/20 Plan of Care End Date 09/05/20 Therapeutic Interventions Therapeutic Interventions Home Exercise Program,Joint Mobilizations,Manual Therapy, Neuromuscular Re-education, Self-Care/Home Management, Therapeutic Activities, Therapeutic Exercises Modalities Cold Pack/Ice Massage,Electric Stimulation,Hot Packs, Traction- Mechanical, Ultrasound Next Visit Focus/Plan Next Note Type Treatment Note Next Visit Plan Begin with HEP instruction in AAROM/PROM/isometrics for shoulders and L knee extension ROM. Plan of Care Dates Plan of Care Start Date 06/27/20 Plan of Care End Date 09/05/20 Electronically Signed by: Clotilde Samuel, PT 06/30/20 [id number] Please Sign and Return: I have reviewed this Plan of Care and certify that the skilled therapy services above are required to meet the patient?s needs. Physician Signature Date Printed Name and Credentials Clinical Instructor Signature Printed Name and Credentials
--- NOTE | 2020-07-04 13:52 | PT.OTN ---
Current Diagnoses Pain in right shoulder (07/04/20) Pain in left shoulder (07/04/20) Pain in unspecified knee (07/04/20) Lumbago with sciatica, unspecified side (07/04/20) Physical Therapy Treatment Note PT-OP-A Visit Information Start: 06/27/20 08:14 Freq: Status: Active Protocol: Document 07/04/20 13:04 SP (Rec: 07/04/20 16:02 SP [id number]) Out-Patient Physical Therapy Visit Information Visit Information Visit Type Treatment Note Visit Start Time 13:04 Visit Stop Time 13:52 Total Visit Minutes 48 Visit Number 3 Number of HR ADVISOR Visits 1 PT-OP-B Current Condition Start: 06/27/20 08:14 Freq: Status: Active Protocol: Document 06/27/20 08:16 AMB (Rec: 06/27/20 08:30 AMB [id number]) Current Condition History of Current Condition Onset Date Current Complaints R>L Shoulder, L>R knee, back/ hip pain History of Current Condition Mumtaz retired from the [employer] in 2003 the pain has been getting worse, bilateral knees, shoulder was hurt playing [employer]. RHD worked overhead, lifting. Lifting heavy constantly. 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 Feels the knees with walking downhill. Uphill feels the back. Lying in bed can get burning in bilateral outside of thighs. Hx L meniscus surgery around time of residential from [employer]. Prior Treatments and Tests Prior PT for R shoulder liked the kinesiotape- that helped while going there, but then the pain came back Treatment Goals Patient/Caregiver Goals Used to workout 3-4 years ago. Prior Functional Status Baseline Function- ADL's Independent Baseline Function- Mobility Independent Personal Factors Other Personal Factors That May Effect Hx TB, DMII, hypertension Therapy/Recovery PT-OP-C Subjective Start: 06/27/20 08:14 Freq: Status: Active Protocol: Document 07/04/20 13:04 SP (Rec: 07/04/20 16:02 SP [id number]) OP-PT Subjective Patient Comments Patient Comments Pt stated feels about the same since eval, didn't do much at last appt. In past therapy, they K taped my R shld due to felt at times like coming out of joint and did ultrasound on shld for help with pain. PT-OP-K Range of Motion Start: 06/27/20 08:14 Freq: Status: Active Protocol: Document 06/27/20 08:15 AMB (Rec: 06/27/20 16:11 AMB [id number]) Lumbar Spine Range of Motion Lumbar Spine Active Degrees Testing Position Standing Flexion 20 Extension 15 Lateral Flexion Left 10 Lateral Flexion Right 10 Shoulder Goniometric Range of Motion Shoulder Right Passive Testing Position Supine Flexion 80 Abduction 90 External Rotation at 0 degrees Abduction 50 Left Passive Testing Position Supine Flexion 100 Abduction 90 External Rotation at 0 degrees Abduction 80 Knee Goniometric Range of Motion Knee Right Flexion Active (degrees) 120 Extension Active (degrees) 0 Left Patient Position Supine Flexion Passive (degrees) 100 Extension Passive (degrees) 15 PT-OP-Q Treatments Start: 06/27/20 08:14 Freq: Status: Active Protocol: Document 07/04/20 13:04 SP (Rec: 07/04/20 16:02 SP [id number]) Therapeutic Exercises Supine Exercises AAROM Supine Exercise Name FF Equipment Used dowel Comments discomfort FF at 90, increased pain futher Manual Therapy Treatment Soft Tissue Mobilization STMs Body Location B pec minor, posterior deltoid , Infraspinatus, supraspinatus Comments R>L pain posterior deltoid, distal infrasp. Joint Mobilizations B GH jt Joint inf, posterior Grade II Body Position Supine Taping R GH jt Body Location elevation, retraction Treatment Focus R humeral stabilization Type of Tape Kinesio Tape Skin Inspection intact, normal color/ texture Comments good positioning comfort feels supported Manual Techniques PROM Type B Shld Comments FF, ABD, ER PT-OP-T Assessment and Plan Start: 06/27/20 08:14 Freq: Status: Active Protocol: Document 07/04/20 13:04 SP (Rec: 07/04/20 16:02 SP [id number]) Physical Therapy Assessment Goals Three Impairment Functional activities Short Term Goal (STG) Yakov will walk for 1 mile with knee pain of 3/10 or less . STG Duration 5 weeks Care Home Goal (LTG) Yakov will lift 10# to shoulder height with pain of 3 /10 or less. LTG Duration 10 weeks Two Impairment Knee ROM Short Term Goal (STG) Yakov will improve his L knee extension to missing 5 degrees. STG Duration 5 weeks One Impairment Shoulder ROM Short Term Goal (STG) Mumtaz will improve his R shoulder PROM to 110 degrees of flexion. STG Duration 5 weeks LTG Duration 10 weeks Assessment Summary Assessment Pt mentioned R>L posterior deltoid/ GH jt more sensitive to pressure but felt was beneficial. Initated HEP: Table slides more welcoming low pain to painfree range, scap retraction. Pt stated Ktaping to R shld for stability felt alot better and helped table slide. Physical Therapy Plan Frequency and Duration Frequency of Treatment 1x/Week Duration of Treatment 10 weeks Plan of Care Start Date 06/27/20 Plan of Care End Date 09/05/20 Therapeutic Interventions Therapeutic Interventions Home Exercise Program,Joint Mobilizations,Manual Therapy, Neuromuscular Re-education, Self-Care/Home Management, Therapeutic Activities, Therapeutic Exercises Modalities Cold Pack/Ice Massage,Electric Stimulation,Hot Packs, Traction- Mechanical, Ultrasound Next Visit Focus/Plan Next Note Type Treatment Note Next Visit Plan Assess reponse of manual, PROM , k taping R shld, scap retraction, table slides. Next tx: Begin with HEP instruction in AAROM/PROM pulleys/ isometrics for shoulders and initiated L knee activity extension ROM. Future tx: benefit of US on shlds, K taping of R shld for stability.
--- NOTE | 2020-07-18 09:05 | PT.OTN ---
Current Diagnoses Pain in right shoulder (07/18/20) Pain in left shoulder (07/18/20) Pain in unspecified knee (07/18/20) Lumbago with sciatica, unspecified side (07/18/20) Physical Therapy Treatment Note PT-OP-A Visit Information Start: 06/27/20 08:14 Freq: Status: Active Protocol: Document 07/18/20 08:05 SP (Rec: 07/18/20 10:27 SP [id number]) Out-Patient Physical Therapy Visit Information Visit Information Visit Type Treatment Note Visit Start Time 08:05 Visit Stop Time 09:05 Total Visit Minutes 60 Visit Number 4 Number of ASSOCIATE ARTISTIC DIRECTOR Visits 2 PT-OP-B Current Condition Start: 06/27/20 08:14 Freq: Status: Active Protocol: Document 06/27/20 08:16 AMB (Rec: 06/27/20 08:30 AMB [id number]) Current Condition History of Current Condition Onset Date Current Complaints R>L Shoulder, L>R knee, back/ hip pain History of Current Condition Mumtaz retired from the [employer] in 2003 the pain has been getting worse, bilateral knees, shoulder was hurt playing [email or web address]. RHD worked overhead, lifting. Lifting heavy constantly. 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 Feels the knees with walking downhill. Uphill feels the back. Lying in bed can get burning in bilateral outside of thighs. Hx L meniscus surgery around time of intermediate from [employer]. Prior Treatments and Tests Prior PT for R shoulder liked the kinesiotape- that helped while going there, but then the pain came back Treatment Goals Patient/Caregiver Goals Used to workout 3-4 years ago. Prior Functional Status Baseline Function- ADL's Independent Baseline Function- Mobility Independent Personal Factors Other Personal Factors That May Effect Hx TB, DMII, hypertension Therapy/Recovery PT-OP-C Subjective Start: 06/27/20 08:14 Freq: Status: Active Protocol: Document 07/18/20 08:05 SP (Rec: 07/18/20 10:27 SP [id number]) OP-PT Subjective Patient Comments Patient Comments Pt stated was little sore after last tx and after exercises but feels does loosen up the shld and ROM, did do few more reps due to benefits gets. Pt stated his L shld was more painful couple of days ago more than R. States is able to do pistol activities but is hard pulling from holster. Pt stated k taping for R shld has been helpful and lasts about 3 days before starts to irritate skin so takes off, wants to reapply if time today. Patient Reported Progress Improving PT-OP-K Range of Motion Start: 06/27/20 08:14 Freq: Status: Active Protocol: Document 06/27/20 08:15 AMB (Rec: 06/27/20 16:11 AMB [id number]) Lumbar Spine Range of Motion Lumbar Spine Active Degrees Testing Position Standing Flexion 20 Extension 15 Lateral Flexion Left 10 Lateral Flexion Right 10 Shoulder Goniometric Range of Motion Shoulder Right Passive Testing Position Supine Flexion 80 Abduction 90 External Rotation at 0 degrees Abduction 50 Left Passive Testing Position Supine Flexion 100 Abduction 90 External Rotation at 0 degrees Abduction 80 Knee Goniometric Range of Motion Knee Right Flexion Active (degrees) 120 Extension Active (degrees) 0 Left Patient Position Supine Flexion Passive (degrees) 100 Extension Passive (degrees) 15 PT-OP-Q Treatments Start: 06/27/20 08:14 Freq: Status: Active Protocol: Document 07/18/20 08:05 SP (Rec: 07/18/20 10:27 SP [id number]) Therapeutic Exercises Supine Exercises AAROM Supine Exercise Name FF Equipment Used dowel Comments discomfort FF at 90, increased pain futher- stopped Sitting Exercises table slides Sitting Exercise Name performed single at time ( review HEP) Side bilateral Resistance AAROM Equipment Used table, uses hold stationary bar and flexes trunk/ squats back Reps/Minutes x8 each (performs more at home ) Comments good tolerance painfree range- has helped alot pulleys Sitting Exercise Name FF, ABD (added to HEP helpful- will get for home) Side bilateral Equipment Used mirror feedback for decrease UT compenstations Reps/Minutes x5 each direction B Standing Exercises Isometrics Standing Exercise Name IR, ER towel under arm (added to HEP) Side bilateral Reps/Minutes 5 sec hold x5 Comments good form and commented workout burn not pain, this is hepful Manual Therapy Treatment Soft Tissue Mobilization STMs Body Location B pec minor, posterior deltoid , Infraspinatus, supraspinatus , UT Mobilization Type Strumming,Sustained Pressure, Other Intensity/Depth Moderate Body Position Hooklying Comments R>L pain posterior deltoid, distal infrasp, MWM w/ PROM small range. Joint Mobilizations B GH jt Joint inf, posterior Grade II Body Position Supine Taping R GH jt Body Location elevation, retraction Treatment Focus R humeral stabilization Type of Tape Kinesio Tape Skin Inspection intact, normal color/ texture Comments good positioning comfort feels supported - forgot to reapply today- continue next tx!! Manual Techniques PROM Type B Shld Body Position Supine Reps/Duration extra time spent PROM and contract relax to gain ROM Comments FF L 112*, R 97* ABD L 95*, R 78* ER w/ 40 deg ABD: L 40*, R 40* PT-OP-T Assessment and Plan Start: 06/27/20 08:14 Freq: Status: Active Protocol: Document 07/18/20 08:05 SP (Rec: 07/18/20 10:27 SP [id number]) Physical Therapy Assessment Goals Three Impairment Functional activities Short Term Goal (STG) Yakov will walk for 1 mile with knee pain of 3/10 or less . STG Duration 5 weeks Transcript Clerk Goal (LTG) Yakov will lift 10# to shoulder height with pain of 3 /10 or less. LTG Duration 10 weeks Two Impairment Knee ROM Short Term Goal (STG) Yakov will improve his L knee extension to missing 5 degrees. STG Duration 5 weeks One Impairment Shoulder ROM Short Term Goal (STG) Mumtaz will improve his R shoulder PROM to 110 degrees of flexion. STG Duration 5 weeks LTG Duration 10 weeks Assessment Summary Assessment Pt responded well to tx, slow but seeing progress in ROM, compliant in HEP. Able to gain ROM w/ contract relax L>R. Good response to initiation of isometrics IR/ ER today good muscle burn like max reps w/ no pain post educatoin on proper set up/form. Discussed self STMs using racquetball at wall but didn't get to perform today, show next tx, and reapply K taping for stability. Physical Therapy Plan Frequency and Duration Frequency of Treatment 1x/Week Duration of Treatment 10 weeks Plan of Care Start Date 06/27/20 Plan of Care End Date 09/05/20 Therapeutic Interventions Therapeutic Interventions Home Exercise Program,Joint Mobilizations,Manual Therapy, Neuromuscular Re-education, Self-Care/Home Management, Therapeutic Activities, Therapeutic Exercises Modalities Cold Pack/Ice Massage,Electric Stimulation,Hot Packs, Traction- Mechanical, Ultrasound Next Visit Focus/Plan Next Note Type Treatment Note Next Visit Plan Assess reponse of manual, PROM , pulleys, isometrics, table slides. Next tx: reapply K tape, show self STMs ball wall- d iscussed not performed. L knee assess- have not incorporated in tx w /ASSOCIATE ARTISTIC DIRECTOR. Future tx: benefit of US on shlds.
--- NOTE | 2020-07-25 15:47 | PT.OTN ---
Current Diagnoses Pain in right shoulder (07/25/20) Pain in left shoulder (07/25/20) Pain in unspecified knee (07/25/20) Lumbago with sciatica, unspecified side (07/25/20) Physical Therapy Treatment Note PT-OP-A Visit Information Start: 06/27/20 08:14 Freq: Status: Active Protocol: Document 07/25/20 08:15 AMB (Rec: 07/25/20 13:33 AMB [id number]) Out-Patient Physical Therapy Visit Information Visit Information Visit Type Treatment Note Visit Start Time 08:15 Visit Stop Time 09:15 Total Visit Minutes 60 Visit Number 4 Number of SNATH HANDLE ASSEMBLER Visits 0 PT-OP-B Current Condition Start: 06/27/20 08:14 Freq: Status: Active Protocol: Document 06/27/20 08:16 AMB (Rec: 06/27/20 08:30 AMB [id number]) Current Condition History of Current Condition Onset Date Current Complaints R>L Shoulder, L>R knee, back/ hip pain History of Current Condition Mumtaz retired from the [employer] in 2003 the pain has been getting worse, bilateral knees, shoulder was hurt playing [employer]. RHD worked overhead, lifting. Lifting heavy constantly. 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 Feels the knees with walking downhill. Uphill feels the back. Lying in bed can get burning in bilateral outside of thighs. Hx L meniscus surgery around time of correction from [employer]. Prior Treatments and Tests Prior PT for R shoulder liked the kinesiotape- that helped while going there, but then the pain came back Treatment Goals Patient/Caregiver Goals Used to workout 3-4 years ago. Prior Functional Status Baseline Function- ADL's Independent Baseline Function- Mobility Independent Personal Factors Other Personal Factors That May Effect Hx TB, DMII, hypertension Therapy/Recovery PT-OP-C Subjective Start: 06/27/20 08:14 Freq: Status: Active Protocol: Document 07/25/20 08:15 AMB (Rec: 07/25/20 13:33 AMB [id number]) OP-PT Subjective Patient Comments Patient Comments Pt would like to work on low back in addition to shoulder. PT-OP-K Range of Motion Start: 06/27/20 08:14 Freq: Status: Active Protocol: Document 06/27/20 08:15 AMB (Rec: 06/27/20 16:11 AMB [email or web address]) Lumbar Spine Range of Motion Lumbar Spine Active Degrees Testing Position Standing Flexion 20 Extension 15 Lateral Flexion Left 10 Lateral Flexion Right 10 Shoulder Goniometric Range of Motion Shoulder Right Passive Testing Position Supine Flexion 80 Abduction 90 External Rotation at 0 degrees Abduction 50 Left Passive Testing Position Supine Flexion 100 Abduction 90 External Rotation at 0 degrees Abduction 80 Knee Goniometric Range of Motion Knee Right Flexion Active (degrees) 120 Extension Active (degrees) 0 Left Patient Position Supine Flexion Passive (degrees) 100 Extension Passive (degrees) 15 PT-OP-Q Treatments Start: 06/27/20 08:14 Freq: Status: Active Protocol: Document 07/25/20 08:15 AMB (Rec: 07/25/20 15:47 AMB [email or web address]) Therapeutic Exercises Supine Exercises 4 Supine Exercise Name Pelvic tilt with TA Reps/Minutes 10 3 Supine Exercise Name STC Reps/Minutes 30x2 2 Supine Exercise Name lower trunk rotation Reps/Minutes 2x10 1 Supine Exercise Name hamstring stretch Reps/Minutes 30x2 Manual Therapy Treatment Soft Tissue Mobilization 1 Body Location lumbar paraspinals/QL Mobilization Type Instrument Assisted,Myofascial Release Intensity/Depth Moderate Body Position Sidelying Comments right and left t/l junction Manual Techniques 1 Type Instruction in theracane/ tennis ball Body Location lumbar Body Position Hooklying PT-OP-R Modalities Start: 07/25/20 11:47 Freq: Status: Active Protocol: Document 07/25/20 08:15 AMB (Rec: 07/25/20 13:33 AMB [id number]) Electric Stimulation Electric Stimulation Interferential Current (IFC) Body Location low back Duration (Minutes) 15 Comments with moist heat PT-OP-T Assessment and Plan Start: 06/27/20 08:14 Freq: Status: Active Protocol: Document 07/25/20 08:15 AMB (Rec: 07/25/20 15:47 AMB [email or web address]) Physical Therapy Assessment Goals Three Impairment Functional activities Short Term Goal (STG) Yakov will walk for 1 mile with knee pain of 3/10 or less . STG Duration 5 weeks Grocery Team Member Goal (LTG) Yakov will lift 10# to shoulder height with pain of 3 /10 or less. LTG Duration 10 weeks Two Impairment Knee ROM Short Term Goal (STG) Yakov will improve his L knee extension to missing 5 degrees. STG Duration 5 weeks One Impairment Shoulder ROM Short Term Goal (STG) Mumtaz will improve his R shoulder PROM to 110 degrees of flexion. STG Duration 5 weeks LTG Duration 10 weeks Assessment Summary Assessment Instructed in self MFR with tennis ball and theracane and pt practiced with his back. Did not tape shoulder, as pt had a fall and has an icyhot patch in place. Would encourage continued lumbar/hip stabilization stretching addition to program. Physical Therapy Plan Frequency and Duration Frequency of Treatment 1x/Week Duration of Treatment 10 weeks Plan of Care Start Date 06/27/20 Plan of Care End Date 09/05/20 Next Visit Focus/Plan Next Note Type Treatment Note Next Visit Plan Add in treatment of lumbar spine to shoulder treatment, discuss prioritization of treatment, does pt want knees addressed?
--- NOTE | 2020-08-01 13:13 | PT.OTN ---
Current Diagnoses Pain in right shoulder (08/01/20) Pain in left shoulder (08/01/20) Pain in unspecified knee (08/01/20) Lumbago with sciatica, unspecified side (08/01/20) Physical Therapy Treatment Note PT-OP-A Visit Information Start: 06/27/20 08:14 Freq: Status: Active Protocol: Document 08/01/20 08:16 AMB (Rec: 08/01/20 09:02 AMB [id number]) Out-Patient Physical Therapy Visit Information Visit Information Visit Type Treatment Note Visit Start Time 08:15 Visit Stop Time 09:00 Total Visit Minutes 60 Visit Number 5 PT-OP-B Current Condition Start: 06/27/20 08:14 Freq: Status: Active Protocol: Document 06/27/20 08:16 AMB (Rec: 06/27/20 08:30 AMB [id number]) Current Condition History of Current Condition Onset Date Current Complaints R>L Shoulder, L>R knee, back/ hip pain History of Current Condition Mumtaz retired from the [employer] in 2003 the pain has been getting worse, bilateral knees, shoulder was hurt playing [employer]. RHD worked overhead, lifting. Lifting heavy constantly. 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 Feels the knees with walking downhill. Uphill feels the back. Lying in bed can get burning in bilateral outside of thighs. Hx L meniscus surgery around time of snf from [employer]. Prior Treatments and Tests Prior PT for R shoulder liked the kinesiotape- that helped while going there, but then the pain came back Treatment Goals Patient/Caregiver Goals Used to workout 3-4 years ago. Prior Functional Status Baseline Function- ADL's Independent Baseline Function- Mobility Independent Personal Factors Other Personal Factors That May Effect Hx TB, DMII, hypertension Therapy/Recovery PT-OP-C Subjective Start: 06/27/20 08:14 Freq: Status: Active Protocol: Document 08/01/20 08:16 AMB (Rec: 08/01/20 09:02 AMB [id number]) OP-PT Subjective Patient Comments Patient Comments Pt states shoulder and low back are about the same. PT-OP-K Range of Motion Start: 06/27/20 08:14 Freq: Status: Active Protocol: Document 06/27/20 08:15 AMB (Rec: 06/27/20 16:11 AMB [email or web address]) Lumbar Spine Range of Motion Lumbar Spine Active Degrees Testing Position Standing Flexion 20 Extension 15 Lateral Flexion Left 10 Lateral Flexion Right 10 Shoulder Goniometric Range of Motion Shoulder Right Passive Testing Position Supine Flexion 80 Abduction 90 External Rotation at 0 degrees Abduction 50 Left Passive Testing Position Supine Flexion 100 Abduction 90 External Rotation at 0 degrees Abduction 80 Knee Goniometric Range of Motion Knee Right Flexion Active (degrees) 120 Extension Active (degrees) 0 Left Patient Position Supine Flexion Passive (degrees) 100 Extension Passive (degrees) 15 PT-OP-Q Treatments Start: 06/27/20 08:14 Freq: Status: Active Protocol: Document 08/01/20 08:15 AMB (Rec: 08/01/20 09:02 AMB [id number]) Therapeutic Exercises Supine Exercises 4 Supine Exercise Name Pelvic tilt with TA Reps/Minutes 10 2 Supine Exercise Name lower trunk rotation Reps/Minutes 2x10 Sitting Exercises 1 Sitting Exercise Name lumbar flexion stretch on table top/standing at counter Reps/Minutes 30 x4 Comments with modification for shoulder pain Other Exercises 1 Other Exercise Name modified lester pose Comments pt stated interested in yoga so tried, but knees and shoulders limit Manual Therapy Treatment Soft Tissue Mobilization 1 Body Location lumbar paraspinals/QL Mobilization Type Instrument Assisted,Myofascial Release Intensity/Depth Moderate Body Position Sidelying Comments right and left t/l junction Taping R GH jt Body Location elevation, retraction Treatment Focus R humeral stabilization Type of Tape Kinesio Tape Skin Inspection intact, normal color/ texture Comments good positioning comfort feels supported - PT-OP-R Modalities Start: 07/25/20 11:47 Freq: Status: Active Protocol: Document 07/25/20 08:15 AMB (Rec: 07/25/20 13:33 AMB [id number]) Electric Stimulation Electric Stimulation Interferential Current (IFC) Body Location low back Duration (Minutes) 15 Comments with moist heat PT-OP-T Assessment and Plan Start: 06/27/20 08:14 Freq: Status: Active Protocol: Document 08/01/20 08:15 AMB (Rec: 08/01/20 09:02 AMB [id number]) Physical Therapy Assessment Goals Three Impairment Functional activities Short Term Goal (STG) Yakov will walk for 1 mile with knee pain of 3/10 or less . STG Duration 5 weeks Heating Operators Engineer Goal (LTG) Yakov will lift 10# to shoulder height with pain of 3 /10 or less. LTG Duration 10 weeks Two Impairment Knee ROM Short Term Goal (STG) Yakov will improve his L knee extension to missing 5 degrees. STG Duration 5 weeks One Impairment Shoulder ROM Short Term Goal (STG) Mumtaz will improve his R shoulder PROM to 110 degrees of flexion. STG Duration 5 weeks LTG Duration 10 weeks Assessment Summary Assessment Mumtaz requires extensive modification of most low back exercises due to shoulder pain . Pt was wondering about doing yoga, but would not recommend independent yoga, but possibly a class where the instructor was very focused on modifying if necessary, discussed this with him. Physical Therapy Plan Frequency and Duration Frequency of Treatment 1x/Week Duration of Treatment 10 weeks Plan of Care Start Date 06/27/20 Plan of Care End Date 09/05/20 Therapeutic Interventions Therapeutic Interventions Home Exercise Program,Joint Mobilizations,Manual Therapy, Neuromuscular Re-education, Self-Care/Home Management, Therapeutic Activities, Therapeutic Exercises Modalities Cold Pack/Ice Massage,Electric Stimulation,Hot Packs, Traction- Mechanical, Ultrasound Next Visit Focus/Plan Next Note Type Treatment Note Next Visit Plan Offer e-stim and heat to low back-forgot this visit. continue kinesiotaping for shoulder. Gentle progression of HEP adding in more low back as tolerated.
--- NOTE | 2020-08-07 14:30 | PT.OTN ---
Current Diagnoses Pain in right shoulder (08/07/20) Pain in left shoulder (08/07/20) Pain in unspecified knee (08/07/20) Lumbago with sciatica, unspecified side (08/07/20) Physical Therapy Treatment Note PT-OP-A Visit Information Start: 06/27/20 08:14 Freq: Status: Active Protocol: Document 08/07/20 13:48 SP (Rec: 08/07/20 15:49 SP [id number]) Out-Patient Physical Therapy Visit Information Visit Information Visit Type Treatment Note Visit Start Time 13:48 Visit Stop Time 14:30 Total Visit Minutes 42 Visit Number 6 Number of MACHINIST LINOTYPE Visits 1 PT-OP-B Current Condition Start: 06/27/20 08:14 Freq: Status: Active Protocol: Document 06/27/20 08:16 AMB (Rec: 06/27/20 08:30 AMB [id number]) Current Condition History of Current Condition Onset Date Current Complaints R>L Shoulder, L>R knee, back/ hip pain History of Current Condition Mumtaz retired from the [employer] in 2003 the pain has been getting worse, bilateral knees, shoulder was hurt playing [employer]. RHD worked overhead, lifting. Lifting heavy constantly. 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 Feels the knees with walking downhill. Uphill feels the back. Lying in bed can get burning in bilateral outside of thighs. Hx L meniscus surgery around time of fdc from [employer]. Prior Treatments and Tests Prior PT for R shoulder liked the kinesiotape- that helped while going there, but then the pain came back Treatment Goals Patient/Caregiver Goals Used to workout 3-4 years ago. Prior Functional Status Baseline Function- ADL's Independent Baseline Function- Mobility Independent Personal Factors Other Personal Factors That May Effect Hx TB, DMII, hypertension Therapy/Recovery PT-OP-C Subjective Start: 06/27/20 08:14 Freq: Status: Active Protocol: Document 08/07/20 13:48 SP (Rec: 08/07/20 15:49 SP [id number]) OP-PT Subjective Patient Comments Patient Comments Pt stated Lateral L knee/ thigh hurting alot today, just came from work. 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 States the K taping help alot on R shld for support but doesn't last mroe that 2 days before gets itchy but feels the benefit out weighs the itchiness and wants reapplied with visual to know how to reapply on own with help. Suggested to take a picture for awarness for placement. PT-OP-K Range of Motion Start: 06/27/20 08:14 Freq: Status: Active Protocol: Document 06/27/20 08:15 AMB (Rec: 06/27/20 16:11 AMB [email or web address]) Lumbar Spine Range of Motion Lumbar Spine Active Degrees Testing Position Standing Flexion 20 Extension 15 Lateral Flexion Left 10 Lateral Flexion Right 10 Shoulder Goniometric Range of Motion Shoulder Right Passive Testing Position Supine Flexion 80 Abduction 90 External Rotation at 0 degrees Abduction 50 Left Passive Testing Position Supine Flexion 100 Abduction 90 External Rotation at 0 degrees Abduction 80 Knee Goniometric Range of Motion Knee Right Flexion Active (degrees) 120 Extension Active (degrees) 0 Left Patient Position Supine Flexion Passive (degrees) 100 Extension Passive (degrees) 15 PT-OP-Q Treatments Start: 06/27/20 08:14 Freq: Status: Active Protocol: Document 08/07/20 13:48 SP (Rec: 08/07/20 15:49 SP [id number]) Therapeutic Exercises Supine Exercises 4 Supine Exercise Name Pelvic tilt with TA Reps/Minutes 10 AAROM Supine Exercise Name FF and ABD Side bilateral Resistance AAROM w/ ossilations Equipment Used manual Comments AROM 70 deg FF/ ABD improved to 90 deg Sitting Exercises table slides Sitting Exercise Name performed single at time ( review HEP) Side bilateral Resistance AAROM Equipment Used table, uses stationary bar and flexes trunk/ squats back at work Reps/Minutes x10 each (performs more at home) Comments good tolerance painfree range- has helped alot at work to get through day pulleys Sitting Exercise Name Pt stated is going to order one for home, didnt 'get to today Standing Exercises Isometrics Standing Exercise Name pt states is performing at home, no concerns Manual Therapy Treatment Soft Tissue Mobilization STMs Body Location L distal ITB, vastus lateralis , peroneus longus proximal Mobilization Type Instrument Assisted,Rolling, Strumming,Other Intensity/Depth Moderate Body Position Hooklying Comments manual and stick rolling,with instruction on self application at home Joint Mobilizations B GH jt Joint inf, posterior Grade II Body Position Supine Comments then AAROM Taping R GH jt Body Location elevation, retraction Treatment Focus R humeral stabilization Type of Tape Kinesio Tape Skin Inspection intact, normal color/ texture Comments good positioning comfort feels supported - distal deltoid V around AC jt toward C7 w/ scap retract/ depress. Manual Techniques 1 Type instruction in rolling stick over L quad, ITB, HS Comments post manual STMs manual and rolling stick PT-OP-R Modalities Start: 07/25/20 11:47 Freq: Status: Active Protocol: Document 07/25/20 08:15 AMB (Rec: 07/25/20 13:33 AMB [id number]) Electric Stimulation Electric Stimulation Interferential Current (IFC) Body Location low back Duration (Minutes) 15 Comments with moist heat PT-OP-T Assessment and Plan Start: 06/27/20 08:14 Freq: Status: Active Protocol: Document 08/07/20 13:48 SP (Rec: 08/07/20 15:49 SP [id number]) Physical Therapy Assessment Goals Three Impairment Functional activities Short Term Goal (STG) Yakov will walk for 1 mile with knee pain of 3/10 or less . STG Duration 5 weeks Blog Writer Goal (LTG) Yakov will lift 10# to shoulder height with pain of 3 /10 or less. LTG Duration 10 weeks Two Impairment Knee ROM Short Term Goal (STG) Yakov will improve his L knee extension to missing 5 degrees. STG Duration 5 weeks One Impairment Shoulder ROM Short Term Goal (STG) Mumtaz will improve his R shoulder PROM to 110 degrees of flexion. STG Duration 5 weeks LTG Duration 10 weeks Assessment Summary Assessment Pt reported his L knee feels alot better, not nearly as tight post manual. I am going to have to do the rolling at home as well. Pt limited in B shld ROM, improved 20 deg by end of tx. Suggested getting pulleys for home, was beneficial last used in tx. Physical Therapy Plan Frequency and Duration Frequency of Treatment 1x/Week Duration of Treatment 10 weeks Plan of Care Start Date 06/27/20 Plan of Care End Date 09/05/20 Therapeutic Interventions Therapeutic Interventions Home Exercise Program,Joint Mobilizations,Manual Therapy, Neuromuscular Re-education, Self-Care/Home Management, Therapeutic Activities, Therapeutic Exercises Modalities Cold Pack/Ice Massage,Electric Stimulation,Hot Packs, Traction- Mechanical, Ultrasound Next Visit Focus/Plan Next Note Type Treatment Note Next Visit Plan Next tx warm up on pulleys for shld PROM. Offer e-stim and heat to low back-forgot this visit. continue kinesiotaping for R shoulder. Gentle progression of HEP adding in more low back as tolerated.
--- NOTE | 2020-08-15 09:21 | PT.OTN ---
Current Diagnoses Pain in right shoulder (08/15/20) Pain in left shoulder (08/15/20) Pain in unspecified knee (08/15/20) Lumbago with sciatica, unspecified side (08/15/20) Physical Therapy Treatment Note PT-OP-A Visit Information Start: 06/27/20 08:14 Freq: Status: Active Protocol: Document 08/15/20 08:15 AMB (Rec: 08/15/20 08:47 AMB [id number]) Out-Patient Physical Therapy Visit Information Visit Information Visit Type Treatment Note Visit Start Time 08:15 Visit Stop Time 09:00 Total Visit Minutes 45 Visit Number 7 PT-OP-B Current Condition Start: 06/27/20 08:14 Freq: Status: Active Protocol: Document 06/27/20 08:16 AMB (Rec: 06/27/20 08:30 AMB [id number]) Current Condition History of Current Condition Onset Date Current Complaints R>L Shoulder, L>R knee, back/ hip pain History of Current Condition Mumtaz retired from the [employer] in 2003 the pain has been getting worse, bilateral knees, shoulder was hurt playing [employer]. RHD worked overhead, lifting. Lifting heavy constantly. 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 Feels the knees with walking downhill. Uphill feels the back. Lying in bed can get burning in bilateral outside of thighs. Hx L meniscus surgery around time of senior care from [facility]. Prior Treatments and Tests Prior PT for R shoulder liked the kinesiotape- that helped while going there, but then the pain came back Treatment Goals Patient/Caregiver Goals Used to workout 3-4 years ago. Prior Functional Status Baseline Function- ADL's Independent Baseline Function- Mobility Independent Personal Factors Other Personal Factors That May Effect Hx TB, DMII, hypertension Therapy/Recovery PT-OP-C Subjective Start: 06/27/20 08:14 Freq: Status: Active Protocol: Document 08/15/20 08:15 AMB (Rec: 08/17/20 09:19 AMB [email or web address]) OP-PT Subjective Patient Comments Patient Comments Yakov attends PT stating lateral knee (L) has still been bothersome. Back and shoulder are about the same. Going to be mowing lawn after PT. Does request heat and stim at end. PT-OP-K Range of Motion Start: 06/27/20 08:14 Freq: Status: Active Protocol: Document 06/27/20 08:15 AMB (Rec: 06/27/20 16:11 AMB [email or web address]) Lumbar Spine Range of Motion Lumbar Spine Active Degrees Testing Position Standing Flexion 20 Extension 15 Lateral Flexion Left 10 Lateral Flexion Right 10 Shoulder Goniometric Range of Motion Shoulder Right Passive Testing Position Supine Flexion 80 Abduction 90 External Rotation at 0 degrees Abduction 50 Left Passive Testing Position Supine Flexion 100 Abduction 90 External Rotation at 0 degrees Abduction 80 Knee Goniometric Range of Motion Knee Right Flexion Active (degrees) 120 Extension Active (degrees) 0 Left Patient Position Supine Flexion Passive (degrees) 100 Extension Passive (degrees) 15 PT-OP-Q Treatments Start: 06/27/20 08:14 Freq: Status: Active Protocol: Document 08/15/20 08:15 AMB (Rec: 08/17/20 09:19 AMB [email or web address]) Therapeutic Exercises Supine Exercises 5 Supine Exercise Name hamstring stretch Reps/Minutes 30x3 4 Supine Exercise Name Pelvic tilt with TA Reps/Minutes 10 Sitting Exercises pulleys Sitting Exercise Name flexion and scaption Reps/Minutes 5 min Comments mid range only limited by pain Manual Therapy Treatment Soft Tissue Mobilization STMs Body Location L distal ITB, vastus lateralis , peroneus longus proximal Mobilization Type Instrument Assisted,Rolling, Strumming,Other Intensity/Depth Moderate Body Position Hooklying Comments manual and stick rolling,with instruction on self application at home PT-OP-R Modalities Start: 07/25/20 11:47 Freq: Status: Active Protocol: Document 08/15/20 08:15 AMB (Rec: 08/17/20 09:19 AMB [email or web address]) Electric Stimulation Electric Stimulation Interferential Current (IFC) Body Location low back Duration (Minutes) 15 Comments with moist heat PT-OP-T Assessment and Plan Start: 06/27/20 08:14 Freq: Status: Active Protocol: Document 08/15/20 12:45 AMB (Rec: 08/15/20 12:47 AMB [id number]) Physical Therapy Assessment Goals Three Impairment Functional activities Short Term Goal (STG) Yakov will walk for 1 mile with knee pain of 3/10 or less . STG Duration 5 weeks Residential Goal (LTG) Yakov will lift 10# to shoulder height with pain of 3 /10 or less. LTG Duration 10 weeks Two Impairment Knee ROM Short Term Goal (STG) Yakov will improve his L knee extension to missing 5 degrees. STG Duration 5 weeks One Impairment Shoulder ROM Short Term Goal (STG) Mumtaz will improve his R shoulder PROM to 110 degrees of flexion. STG Duration 5 weeks LTG Duration 10 weeks Assessment Summary Assessment Pt tolerated pulleys in a limited range. Very tender at lateral knee today. Physical Therapy Plan Frequency and Duration Frequency of Treatment 1x/Week Duration of Treatment 10 weeks Plan of Care Start Date 06/27/20 Plan of Care End Date 09/05/20 Therapeutic Interventions Therapeutic Interventions Home Exercise Program,Joint Mobilizations,Manual Therapy, Neuromuscular Re-education, Self-Care/Home Management, Therapeutic Activities, Therapeutic Exercises Modalities Cold Pack/Ice Massage,Electric Stimulation,Hot Packs, Traction- Mechanical, Ultrasound Next Visit Focus/Plan Next Note Type Treatment Note Next Visit Plan Next tx warm up on pulleys for shld PROM. Offer e-stim and heat to low back- Gentle progression of HEP adding in more low back as tolerated. Pt is changing work shift so will need to change primary therapist in 2 visits.
--- NOTE | 2020-08-17 09:21 | PT.OTN ---
Current Diagnoses Pain in right shoulder (08/15/20) Pain in left shoulder (08/15/20) Pain in unspecified knee (08/15/20) Lumbago with sciatica, unspecified side (08/15/20) Physical Therapy Treatment Note PT-OP-A Visit Information Start: 06/27/20 08:14 Freq: Status: Active Protocol: Document 08/15/20 08:15 AMB (Rec: 08/15/20 08:47 AMB [id number]) Out-Patient Physical Therapy Visit Information Visit Information Visit Type Treatment Note Visit Start Time 08:15 Visit Stop Time 09:00 Total Visit Minutes 45 Visit Number 7 PT-OP-B Current Condition Start: 06/27/20 08:14 Freq: Status: Active Protocol: Document 06/27/20 08:16 AMB (Rec: 06/27/20 08:30 AMB [id number]) Current Condition History of Current Condition Onset Date Current Complaints R>L Shoulder, L>R knee, back/ hip pain History of Current Condition Mumtaz retired from the [employer] in 2003 the pain has been getting worse, bilateral knees, shoulder was hurt playing [employer]. RHD worked overhead, lifting. Lifting heavy constantly. 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 Feels the knees with walking downhill. Uphill feels the back. Lying in bed can get burning in bilateral outside of thighs. Hx L meniscus surgery around time of long term from [employer]. Prior Treatments and Tests Prior PT for R shoulder liked the kinesiotape- that helped while going there, but then the pain came back Treatment Goals Patient/Caregiver Goals Used to workout 3-4 years ago. Prior Functional Status Baseline Function- ADL's Independent Baseline Function- Mobility Independent Personal Factors Other Personal Factors That May Effect Hx TB, DMII, hypertension Therapy/Recovery PT-OP-C Subjective Start: 06/27/20 08:14 Freq: Status: Active Protocol: Document 08/15/20 08:15 AMB (Rec: 08/17/20 09:19 AMB [email or web address]) OP-PT Subjective Patient Comments Patient Comments Yakov attends PT stating lateral knee (L) has still been bothersome. Back and shoulder are about the same. Going to be mowing lawn after PT. Does request heat and stim at end. PT-OP-K Range of Motion Start: 06/27/20 08:14 Freq: Status: Active Protocol: Document 06/27/20 08:15 AMB (Rec: 06/27/20 16:11 AMB [email or web address]) Lumbar Spine Range of Motion Lumbar Spine Active Degrees Testing Position Standing Flexion 20 Extension 15 Lateral Flexion Left 10 Lateral Flexion Right 10 Shoulder Goniometric Range of Motion Shoulder Right Passive Testing Position Supine Flexion 80 Abduction 90 External Rotation at 0 degrees Abduction 50 Left Passive Testing Position Supine Flexion 100 Abduction 90 External Rotation at 0 degrees Abduction 80 Knee Goniometric Range of Motion Knee Right Flexion Active (degrees) 120 Extension Active (degrees) 0 Left Patient Position Supine Flexion Passive (degrees) 100 Extension Passive (degrees) 15 PT-OP-Q Treatments Start: 06/27/20 08:14 Freq: Status: Active Protocol: Document 08/15/20 08:15 AMB (Rec: 08/17/20 09:19 AMB [email or web address]) Therapeutic Exercises Supine Exercises 5 Supine Exercise Name hamstring stretch Reps/Minutes 30x3 4 Supine Exercise Name Pelvic tilt with TA Reps/Minutes 10 Sitting Exercises pulleys Sitting Exercise Name flexion and scaption Reps/Minutes 5 min Comments mid range only limited by pain Manual Therapy Treatment Soft Tissue Mobilization STMs Body Location L distal ITB, vastus lateralis , peroneus longus proximal Mobilization Type Instrument Assisted,Rolling, Strumming,Other Intensity/Depth Moderate Body Position Hooklying Comments manual and stick rolling,with instruction on self application at home PT-OP-R Modalities Start: 07/25/20 11:47 Freq: Status: Active Protocol: Document 08/15/20 08:15 AMB (Rec: 08/17/20 09:19 AMB [email or web address]) Electric Stimulation Electric Stimulation Interferential Current (IFC) Body Location low back Duration (Minutes) 15 Comments with moist heat PT-OP-T Assessment and Plan Start: 06/27/20 08:14 Freq: Status: Active Protocol: Document 08/15/20 12:45 AMB (Rec: 08/15/20 12:47 AMB [id number]) Physical Therapy Assessment Goals Three Impairment Functional activities Short Term Goal (STG) Yakov will walk for 1 mile with knee pain of 3/10 or less . STG Duration 5 weeks Group Home Goal (LTG) Yakov will lift 10# to shoulder height with pain of 3 /10 or less. LTG Duration 10 weeks Two Impairment Knee ROM Short Term Goal (STG) Yakov will improve his L knee extension to missing 5 degrees. STG Duration 5 weeks One Impairment Shoulder ROM Short Term Goal (STG) Mumtaz will improve his R shoulder PROM to 110 degrees of flexion. STG Duration 5 weeks LTG Duration 10 weeks Assessment Summary Assessment Pt tolerated pulleys in a limited range. Very tender at lateral knee today. Physical Therapy Plan Frequency and Duration Frequency of Treatment 1x/Week Duration of Treatment 10 weeks Plan of Care Start Date 06/27/20 Plan of Care End Date 09/05/20 Therapeutic Interventions Therapeutic Interventions Home Exercise Program,Joint Mobilizations,Manual Therapy, Neuromuscular Re-education, Self-Care/Home Management, Therapeutic Activities, Therapeutic Exercises Modalities Cold Pack/Ice Massage,Electric Stimulation,Hot Packs, Traction- Mechanical, Ultrasound Next Visit Focus/Plan Next Note Type Treatment Note Next Visit Plan Next tx warm up on pulleys for shld PROM. Offer e-stim and heat to low back- Gentle progression of HEP adding in more low back as tolerated. Pt is changing work shift so will need to change primary therapist in 2 visits.
--- NOTE | 2020-08-22 09:00 | PT.OTN ---
Current Diagnoses Pain in right shoulder (08/22/20) Pain in left shoulder (08/22/20) Pain in unspecified knee (08/22/20) Lumbago with sciatica, unspecified side (08/22/20) Physical Therapy Treatment Note PT-OP-A Visit Information Start: 06/27/20 08:14 Freq: Status: Active Protocol: Document 08/22/20 08:19 SP (Rec: 08/22/20 11:55 SP [id number]) Out-Patient Physical Therapy Visit Information Visit Information Visit Type Treatment Note Visit Start Time 08:19 Visit Stop Time 09:00 Total Visit Minutes 41 Visit Number 8 Number of CONSULTING SALES EXECUTIVE Visits 1 PT-OP-B Current Condition Start: 06/27/20 08:14 Freq: Status: Active Protocol: Document 06/27/20 08:16 AMB (Rec: 06/27/20 08:30 AMB [id number]) Current Condition History of Current Condition Onset Date Current Complaints R>L Shoulder, L>R knee, back/ hip pain History of Current Condition Mumtaz retired from the [employer] in 2003 the pain has been getting worse, bilateral knees, shoulder was hurt playing [employer]. RHD worked overhead, lifting. Lifting heavy constantly. 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 Feels the knees with walking downhill. Uphill feels the back. Lying in bed can get burning in bilateral outside of thighs. Hx L meniscus surgery around time of assisted from [facility]. Prior Treatments and Tests Prior PT for R shoulder liked the kinesiotape- that helped while going there, but then the pain came back Treatment Goals Patient/Caregiver Goals Used to workout 3-4 years ago. Prior Functional Status Baseline Function- ADL's Independent Baseline Function- Mobility Independent Personal Factors Other Personal Factors That May Effect Hx TB, DMII, hypertension Therapy/Recovery PT-OP-C Subjective Start: 06/27/20 08:14 Freq: Status: Active Protocol: Document 08/22/20 08:19 SP (Rec: 08/22/20 11:55 SP [id number]) OP-PT Subjective Patient Comments Patient Comments Pt reported knees feel like the same, my R shld is more sore today, think slept wrong on it last night. 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 PT-OP-K Range of Motion Start: 06/27/20 08:14 Freq: Status: Active Protocol: Document 06/27/20 08:15 AMB (Rec: 06/27/20 16:11 AMB [id number]) Lumbar Spine Range of Motion Lumbar Spine Active Degrees Testing Position Standing Flexion 20 Extension 15 Lateral Flexion Left 10 Lateral Flexion Right 10 Shoulder Goniometric Range of Motion Shoulder Right Passive Testing Position Supine Flexion 80 Abduction 90 External Rotation at 0 degrees Abduction 50 Left Passive Testing Position Supine Flexion 100 Abduction 90 External Rotation at 0 degrees Abduction 80 Knee Goniometric Range of Motion Knee Right Flexion Active (degrees) 120 Extension Active (degrees) 0 Left Patient Position Supine Flexion Passive (degrees) 100 Extension Passive (degrees) 15 PT-OP-Q Treatments Start: 06/27/20 08:14 Freq: Status: Active Protocol: Document 08/22/20 08:19 SP (Rec: 08/22/20 11:55 SP [id number]) Therapeutic Exercises Supine Exercises TA bridge Resistance TB #2 loop at knees Reps/Minutes x10 Comments cued TA, PPT and glut fac with good- deminished LBP recruitment hooklying clamshell Supine Exercise Name added to HEP Side bilateral Resistance TB #2 Reps/Minutes 2x10 Comments cued PPT and slow eccentric control SLR Supine Exercise Name TA- added to HEP Side bilateral Resistance AROM Reps/Minutes 2x8-10 Comments cue TA facilitation, opp knee bent Sitting Exercises trunk flexion Sitting Exercise Name forward and off to side ( does on own as HEP) Equipment Used chair Reps/Minutes 30 sec x2 Comments TA fac upon return to sit pos eccentric shld flexion Sitting Exercise Name single arm ( in PT only trial) Side bilateral Resistance TB #1 AAROM Equipment Used chair back to wall, mirror front Reps/Minutes x10 each UE Comments cued scap stab and CS neutral allow UE OH raise table slides Sitting Exercise Name performed single at time ( review HEP) Side bilateral Resistance AAROM Equipment Used table, uses stationary bar and flexes trunk/ squats back at work Reps/Minutes x10 each (performs alot at home) Comments good tolerance painfree range- has helped alot at work to get through day pulleys Sitting Exercise Name flexion and scaption (will get pulleys home) Resistance PROM Equipment Used discussed to get one for home Reps/Minutes 5 min Comments mid range only limited by pain Standing Exercises band walk Standing Exercise Name f/b/side stepping- added to HEP Resistance Tb#2 Reps/Minutes 20 ft x4 laps each Comments cued TA and PPT awareness, soft knee to decrease LB recruitment PT-OP-R Modalities Start: 07/25/20 11:47 Freq: Status: Active Protocol: Document 08/15/20 08:15 AMB (Rec: 08/17/20 09:19 AMB [id number]) Electric Stimulation Electric Stimulation Interferential Current (IFC) Body Location low back Duration (Minutes) 15 Comments with moist heat PT-OP-T Assessment and Plan Start: 06/27/20 08:14 Freq: Status: Active Protocol: Document 08/22/20 08:19 SP (Rec: 08/22/20 11:55 SP [id number]) Physical Therapy Assessment Goals Three Impairment Functional activities Short Term Goal (STG) Yakov will walk for 1 mile with knee pain of 3/10 or less . STG Duration 5 weeks Mcfp Goal (LTG) Yakov will lift 10# to shoulder height with pain of 3 /10 or less. LTG Duration 10 weeks Two Impairment Knee ROM Short Term Goal (STG) Yakov will improve his L knee extension to missing 5 degrees. STG Duration 5 weeks One Impairment Shoulder ROM Short Term Goal (STG) Mumtaz will improve his R shoulder PROM to 110 degrees of flexion. STG Duration 5 weeks LTG Duration 10 weeks Physical Therapy Plan Frequency and Duration Frequency of Treatment 1x/Week Duration of Treatment 10 weeks Plan of Care Start Date 06/27/20 Plan of Care End Date 09/05/20 Therapeutic Interventions Therapeutic Interventions Home Exercise Program,Joint Mobilizations,Manual Therapy, Neuromuscular Re-education, Self-Care/Home Management, Therapeutic Activities, Therapeutic Exercises Modalities Cold Pack/Ice Massage,Electric Stimulation,Hot Packs, Traction- Mechanical, Ultrasound Next Visit Focus/Plan Next Note Type Treatment Note Next Visit Plan Next tx warm up on pulleys for shld PROM. Reassess core and LE strengthening added last tx . Offer e-stim and heat to low back- Gentle progression of HEP adding in more low back as tolerated. Pt is changing work shift so will need to change primary therapist in 2 visits.
--- NOTE | 2020-08-29 14:59 | PT.OTN ---
Current Diagnoses Pain in right shoulder (08/29/20) Pain in left shoulder (08/29/20) Pain in unspecified knee (08/29/20) Lumbago with sciatica, unspecified side (08/29/20) Physical Therapy Treatment Note PT-OP-A Visit Information Start: 06/27/20 08:14 Freq: Status: Active Protocol: Document 08/29/20 08:15 AMB (Rec: 08/29/20 11:03 AMB [id number]) Out-Patient Physical Therapy Visit Information Visit Information Visit Type Treatment Note Visit Start Time 08:15 Visit Stop Time 09:15 Total Visit Minutes 60 Visit Number 9 PT-OP-B Current Condition Start: 06/27/20 08:14 Freq: Status: Active Protocol: Document 06/27/20 08:16 AMB (Rec: 06/27/20 08:30 AMB [id number]) Current Condition History of Current Condition Onset Date Current Complaints R>L Shoulder, L>R knee, back/ hip pain History of Current Condition Mumtaz retired from the [employer] in 2003 the pain has been getting worse, bilateral knees, shoulder was hurt playing [employer]. RHD worked overhead, lifting. Lifting heavy constantly. 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 Feels the knees with walking downhill. Uphill feels the back. Lying in bed can get burning in bilateral outside of thighs. Hx L meniscus surgery around time of [facility] from [facility]. Prior Treatments and Tests Prior PT for R shoulder liked the kinesiotape- that helped while going there, but then the pain came back Treatment Goals Patient/Caregiver Goals Used to workout 3-4 years ago. Prior Functional Status Baseline Function- ADL's Independent Baseline Function- Mobility Independent Personal Factors Other Personal Factors That May Effect Hx TB, DMII, hypertension Therapy/Recovery PT-OP-C Subjective Start: 06/27/20 08:14 Freq: Status: Active Protocol: Document 08/29/20 08:15 AMB (Rec: 08/29/20 11:03 AMB [id number]) OP-PT Subjective Patient Comments Patient Comments Pt reports when sitting on stool at work he can get shooting pain down his leg. Shoulders are about the same, back is painful today. PT-OP-K Range of Motion Start: 06/27/20 08:14 Freq: Status: Active Protocol: Document 08/29/20 08:15 AMB (Rec: 08/29/20 08:38 AMB [id number]) Shoulder Goniometric Range of Motion Shoulder Right Passive Flexion 90 Horizontal Abduction 90 External Rotation at 0 degrees Abduction 60 Left Passive Flexion 120 Abduction 90 External Rotation at 0 degrees Abduction 80 PT-OP-Q Treatments Start: 06/27/20 08:14 Freq: Status: Active Protocol: Document 08/29/20 08:15 AMB (Rec: 08/29/20 11:03 AMB [id number]) Therapeutic Exercises Supine Exercises TA bridge Resistance TB #2 loop at knees Reps/Minutes x10 Comments cued TA, PPT and glut fac -- deminished LBP recruitment AAROM Supine Exercise Name FF and ABD Side bilateral Resistance AAROM w/ ossilations Equipment Used manual Comments AROM 90deg FF/ ABD improved to 90 deg Sitting Exercises table slides Sitting Exercise Name performed single at time ( review HEP) Side bilateral Resistance AAROM Equipment Used table, uses stationary bar and flexes trunk/ squats back at work Reps/Minutes x10 each (performs alot at home) Comments good tolerance painfree range- has helped alot at work to get through day Manual Therapy Treatment Soft Tissue Mobilization STMs Body Location L piriformis/paraspinals/QL Mobilization Type Myofascial Release Intensity/Depth Moderate Body Position Sidelying Joint Mobilizations B GH jt Joint inf, posterior Grade II Body Position Supine Comments then AAROM PT-OP-R Modalities Start: 07/25/20 11:47 Freq: Status: Active Protocol: Document 08/29/20 08:15 AMB (Rec: 08/29/20 11:03 AMB [id number]) Electric Stimulation Electric Stimulation Interferential Current (IFC) Body Location low back Duration (Minutes) 15 Comments with moist heat PT-OP-T Assessment and Plan Start: 06/27/20 08:14 Freq: Status: Active Protocol: Document 08/29/20 08:15 AMB (Rec: 08/29/20 11:03 AMB [id number]) Physical Therapy Assessment Goals Three Impairment Functional activities Short Term Goal (STG) Yakov will walk for 1 mile with knee pain of 3/10 or less . STG Duration 5 weeks Revenue Cycle Manager Goal (LTG) Yakov will lift 10# to shoulder height with pain of 3 /10 or less. LTG Duration 10 weeks Two Impairment Knee ROM Short Term Goal (STG) Yakov will improve his L knee extension to missing 5 degrees. STG Duration 5 weeks One Impairment Shoulder ROM Short Term Goal (STG) Mumtaz will improve his R shoulder PROM to 110 degrees of flexion. STG Duration 5 weeks Assessment Summary Assessment Mumtaz has shown some improvement in shoulder ROM since starting PT, but had a lengthy discussion with him on future improvement potential given symptoms and known impairments on X-ray. He is very hestitant to consider surgery stating that he can't stop working right now. He does state that PT helps for a few days to reduce the pain, but pain comes back when he goes back to work. Physical Therapy Plan Next Visit Focus/Plan Next Note Type Treatment Note Next Visit Plan Continue to progress shoulder, low back, and knee PT with focus on reducing pain, improving ROM, continuing with HEP instruction and manual therapy/modalities as needed. Shoulder and L knee ROM quite limited and painful.
--- NOTE | 2020-09-02 16:01 | PT.OTN ---
Current Diagnoses Pain in right shoulder (09/02/20) Pain in left shoulder (09/02/20) Pain in unspecified knee (09/02/20) Lumbago with sciatica, unspecified side (09/02/20) Physical Therapy Treatment Note PT-OP-A Visit Information Start: 06/27/20 08:14 Freq: Status: Active Protocol: Document 09/02/20 15:52 OF (Rec: 09/02/20 16:01 OF [email or web address]) Out-Patient Physical Therapy Visit Information Visit Information Visit Type Treatment Note Visit Start Time 15:04 Visit Stop Time 15:45 Total Visit Minutes 41 Visit Number 10 PT-OP-B Current Condition Start: 06/27/20 08:14 Freq: Status: Active Protocol: Document 06/27/20 08:16 AMB (Rec: 06/27/20 08:30 AMB [id number]) Current Condition History of Current Condition Onset Date Current Complaints R>L Shoulder, L>R knee, back/ hip pain History of Current Condition Mumtaz retired from the [employer] in 2003 the pain has been getting worse, bilateral knees, shoulder was hurt playing [employer]. RHD worked overhead, lifting. Lifting heavy constantly. 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 Feels the knees with walking downhill. Uphill feels the back. Lying in bed can get burning in bilateral outside of thighs. Hx L meniscus surgery around time of correction from [employer]. Prior Treatments and Tests Prior PT for R shoulder liked the kinesiotape- that helped while going there, but then the pain came back Treatment Goals Patient/Caregiver Goals Used to workout 3-4 years ago. Prior Functional Status Baseline Function- ADL's Independent Baseline Function- Mobility Independent Personal Factors Other Personal Factors That May Effect Hx TB, DMII, hypertension Therapy/Recovery PT-OP-C Subjective Start: 06/27/20 08:14 Freq: Status: Active Protocol: Document 09/02/20 15:52 OF (Rec: 09/02/20 16:01 OF [email or web address]) OP-PT Subjective Patient Comments Patient Comments Pt reports improved pain management at work with AAROM for shoulder and lumbar flexion Patient Reported Progress Improving OP-PT Pain Assessment Pain Assessment Grid Paper Pain Assessment Grid Completed No: pt reports 6/10 R shoulder pain PT-OP-K Range of Motion Start: 06/27/20 08:14 Freq: Status: Active Protocol: Document 08/29/20 08:15 AMB (Rec: 08/29/20 08:38 AMB [id number]) Shoulder Goniometric Range of Motion Shoulder Right Passive Flexion 90 Horizontal Abduction 90 External Rotation at 0 degrees Abduction 60 Left Passive Flexion 120 Abduction 90 External Rotation at 0 degrees Abduction 80 PT-OP-Q Treatments Start: 06/27/20 08:14 Freq: Status: Active Protocol: Document 09/02/20 15:52 OF (Rec: 09/02/20 16:01 OF [email or web address]) Therapeutic Exercises Supine Exercises TA bridge Side bilateral Reps/Minutes 3x10 Comments cued TA, PPT and glute cues with heels on mat 5 Supine Exercise Name hamstring stretch Reps/Minutes 30x3 4 Supine Exercise Name Pelvic tilt with TA Reps/Minutes 3x10 AAROM Supine Exercise Name FF and ABD Side right Resistance AAROM w/ ossilations Equipment Used manual Comments AROM 90deg FF/ ABD improved to 90 deg Sitting Exercises trunk flexion Sitting Exercise Name forward and off to side ( does on own as HEP) Equipment Used chair Reps/Minutes 30 sec x4 Comments TA fac upon return to sit pos table slides Sitting Exercise Name performed single at time ( review HEP) Side bilateral Resistance AAROM Equipment Used table, uses stationary bar and flexes trunk/ squats back at work Reps/Minutes 3x10 each (performs alot at home) Comments good tolerance painfree to 90 has helped alot at work to get through day Standing Exercises rows Side bilateral Resistance TB3 Comments cues for shoulder retraction, demo for eccentric control Manual Therapy Treatment Joint Mobilizations B GH jt Joint inf, posterior Grade II Body Position Supine Comments then AAROM for ABD, flexion Self-Care/Home Management Treatment Education Patient Education Body Mechanics,Home Exercise Program,Pain Management PT-OP-R Modalities Start: 07/25/20 11:47 Freq: Status: Active Protocol: Document 08/29/20 08:15 AMB (Rec: 08/29/20 11:03 AMB [id number]) Electric Stimulation Electric Stimulation Interferential Current (IFC) Body Location low back Duration (Minutes) 15 Comments with moist heat PT-OP-T Assessment and Plan Start: 06/27/20 08:14 Freq: Status: Active Protocol: Document 09/02/20 15:52 OF (Rec: 09/02/20 16:01 OF [email or web address]) Physical Therapy Assessment Rehab Potential Rehabilitation Potential Good Evaluation Complexity Number of Personal Factors/Comorbidities 1-2 Number of Body Systems Impaired 1-2 Clinical Presentation at Evaluation Stable Impairments Impairments Pain,Soft Tissue Mobility, Strength Progress Towards Goals Progress Towards Goals Progressing Toward Goals Assessment Summary Assessment Mumtaz has noticed improvement at work with symptoms. He is agreeable to progressing HEP, but continues to require redirection for proper performance of exercises. He has increased his AROM in R shoulder. Physical Therapy Plan Next Visit Focus/Plan Next Note Type Treatment Note Next Visit Plan Continue to progress shoulder, low back, and knee PT with focus on reducing pain, improving ROM, continuing with HEP instruction and manual therapy/modalities as needed. R>L Shoulder and L knee ROM quite limited and painful.
--- NOTE | 2020-09-09 15:49 | PT.OTN ---
Current Diagnoses Pain in right shoulder (09/09/20) Pain in left shoulder (09/09/20) Pain in unspecified knee (09/09/20) Lumbago with sciatica, unspecified side (09/09/20) Physical Therapy Treatment Note PT-OP-A Visit Information Start: 06/27/20 08:14 Freq: Status: Active Protocol: Document 09/09/20 15:41 OF (Rec: 09/09/20 15:49 OF [email or web address]) Out-Patient Physical Therapy Visit Information Visit Information Visit Type Treatment Note Visit Start Time 15:05 Visit Stop Time 15:45 Total Visit Minutes 40 Visit Number 11 PT-OP-B Current Condition Start: 06/27/20 08:14 Freq: Status: Active Protocol: Document 06/27/20 08:16 AMB (Rec: 06/27/20 08:30 AMB [id number]) Current Condition History of Current Condition Onset Date Current Complaints R>L Shoulder, L>R knee, back/ hip pain History of Current Condition Mumtaz retired from the [employer] in 2003 the pain has been getting worse, bilateral knees, shoulder was hurt playing [email or web address]. RHD worked overhead, lifting. Lifting heavy constantly. 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 Feels the knees with walking downhill. Uphill feels the back. Lying in bed can get burning in bilateral outside of thighs. Hx L meniscus surgery around time of [facility] from [place]. Prior Treatments and Tests Prior PT for R shoulder liked the kinesiotape- that helped while going there, but then the pain came back Treatment Goals Patient/Caregiver Goals Used to workout 3-4 years ago. Prior Functional Status Baseline Function- ADL's Independent Baseline Function- Mobility Independent Personal Factors Other Personal Factors That May Effect Hx TB, DMII, hypertension Therapy/Recovery PT-OP-C Subjective Start: 06/27/20 08:14 Freq: Status: Active Protocol: Document 09/09/20 15:41 OF (Rec: 09/09/20 15:49 OF [email or web address]) OP-PT Subjective Patient Comments Patient Comments Pt reports improved shoulder pain, worse lumbar pain Patient Reported Progress Same OP-PT Pain Assessment Pain Assessment Grid Paper Pain Assessment Grid Completed No: pt rates lumbar pain 4/10 PT-OP-K Range of Motion Start: 06/27/20 08:14 Freq: Status: Active Protocol: Document 08/29/20 08:15 AMB (Rec: 08/29/20 08:38 AMB [id number]) Shoulder Goniometric Range of Motion Shoulder Right Passive Flexion 90 Horizontal Abduction 90 External Rotation at 0 degrees Abduction 60 Left Passive Flexion 120 Abduction 90 External Rotation at 0 degrees Abduction 80 PT-OP-Q Treatments Start: 06/27/20 08:14 Freq: Status: Active Protocol: Document 09/09/20 15:41 OF (Rec: 09/09/20 15:49 OF [email or web address]) Therapeutic Exercises Supine Exercises 5 Supine Exercise Name hamstring stretch Reps/Minutes 30x3 4 Supine Exercise Name Pelvic tilt with TA Reps/Minutes 3x10 3 Supine Exercise Name STC Reps/Minutes 30x2 2 Supine Exercise Name lower trunk rotation Reps/Minutes 2x10 1 Supine Exercise Name bridges Side bilateral Reps/Minutes 3x10 Comments cues for maintaining proper pelvic tilt AAROM Supine Exercise Name FF and ABD Side right Resistance AAROM w/ ossilations Equipment Used manual Comments AROM 90deg FF/ ABD improved to 90 deg Standing Exercises rows Side bilateral Resistance TB3 Comments cues for eccentric control Manual Therapy Treatment Soft Tissue Mobilization 1 Body Location R post delt, rhomboids Mobilization Type Instrument Assisted,Myofascial Release Intensity/Depth Moderate Body Position Standing Comments self STM cues for positioning tennis ball with standing. 1d05bot Joint Mobilizations B GH jt Joint inf, posterior Grade II Body Position Supine Comments then AAROM for ABD, flexion Manual Techniques PROM Type B Shld Body Position Supine Reps/Duration extra time spent PROM and contract relax to gain ROM Comments FF L 115*, R 95* ABD L 95*, R 90* ER w/ 40 deg ABD: L 40*, R 40* Self-Care/Home Management Treatment Education Patient Education Home Exercise Program,Pain Management PT-OP-R Modalities Start: 07/25/20 11:47 Freq: Status: Active Protocol: Document 08/29/20 08:15 AMB (Rec: 08/29/20 11:03 AMB [id number]) Electric Stimulation Electric Stimulation Interferential Current (IFC) Body Location low back Duration (Minutes) 15 Comments with moist heat PT-OP-T Assessment and Plan Start: 06/27/20 08:14 Freq: Status: Active Protocol: Document 09/09/20 15:41 OF (Rec: 09/09/20 15:49 OF [email or web address]) Physical Therapy Assessment Rehab Potential Rehabilitation Potential Good Evaluation Complexity Number of Personal Factors/Comorbidities 1-2 Number of Body Systems Impaired 1-2 Clinical Presentation at Evaluation Stable Impairments Impairments Pain,ROM,Soft Tissue Mobility, Strength Goals Three Impairment Functional activities Short Term Goal (STG) Yakov will walk for 1 mile with knee pain of 3/10 or less . STG Duration 5 weeks Animal Physiology Teacher Goal (LTG) Yakov will lift 10# to shoulder height with pain of 3 /10 or less. LTG Duration 10 weeks Two Impairment Knee ROM Short Term Goal (STG) Yakov will improve his L knee extension to missing 5 degrees. STG Duration 5 weeks One Impairment Shoulder ROM Short Term Goal (STG) Mumtaz will improve his R shoulder PROM to 110 degrees of flexion. STG Duration 5 weeks Progress Towards Goals Progress Towards Goals Progressing Toward Goals Assessment Summary Assessment Pt has improved shoulder symptoms today, worse lumbar pain. He has been incorporating HEP at work, which has improved work tolerance and reduced pain levels. Physical Therapy Plan Frequency and Duration Duration of Treatment 10 weeks Plan of Care Start Date 06/27/20 Plan of Care End Date 09/05/20 Next Visit Focus/Plan Next Note Type Treatment Note Next Visit Plan Continue to progress shoulder, low back, and knee PT with focus on reducing pain, improving ROM, continuing with HEP instruction and manual therapy. Assess self STM for R shoulder
--- NOTE | 2020-10-03 15:09 | PT.OPDS ---
Current Diagnoses Pain in right shoulder (09/09/20) Pain in left shoulder (09/09/20) Pain in unspecified knee (09/09/20) Lumbago with sciatica, unspecified side (09/09/20) Visit Care Team Role Provider Type Jameson Banks DO Attending Provider Non-Staff Primary Care Provider Referring Provider Specialty: Family Practice Address: [address] [place] [address], [id number] Email: Visit Number Visit Number 11 Discharge Summary PT-OP-B Current Condition Start: 06/27/20 08:14 Freq: Status: Active Protocol: Document 06/27/20 08:16 AMB (Rec: 06/27/20 08:30 AMB [id number]) Current Condition History of Current Condition Onset Date Current Complaints R>L Shoulder, L>R knee, back/ hip pain History of Current Condition Mumtaz retired from the [employer] in 2003 the pain has been getting worse, bilateral knees, shoulder was hurt playing [employer]. [employer]HD worked overhead, lifting. Lifting heavy constantly. 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 Feels the knees with walking downhill. Uphill feels the back. Lying in bed can get burning in bilateral outside of thighs. Hx L meniscus surgery around time of fpc from [employer]. Prior Treatments and Tests Prior PT for R shoulder liked the [employer]ines[employer]- that helped while going there, but then the pain came back Treatment Goals Patient/Caregiver Goals Used to workout 3-4 years ago. Prior Functional Status Baseline Function- ADL's Independent Baseline Function- Mobility Independent Personal Factors Other Personal Factors That May Effect Hx TB, DMII, hypertension Therapy/Recovery PT-OP-C Subjective Start: 06/27/20 08:14 Freq: Status: Active Protocol: Document 09/09/20 15:41 OF (Rec: 09/09/20 15:49 OF [id number]) OP-PT Subjective Patient Comments Patient Comments Pt reports improved shoulder pain, worse lumbar pain Patient Reported Progress Same OP-PT Pain Assessment Pain Assessment Grid Paper Pain Assessment Grid Completed No: pt rates lumbar pain /10 PT-OP-K Range of Motion Start: 06/27/20 08:14 Freq: Status: Active Protocol: Document 08/29/20 08:15 AMB (Rec: 08/29/20 08:38 AMB [id number]) Shoulder Goniometric Range of Motion Shoulder Right Passive Flexion 90 Horizontal Abduction 90 External Rotation at 0 degrees Abduction 60 Left Passive Flexion 120 Abduction 90 External Rotation at 0 degrees Abduction 80 PT-OP-T Assessment and Plan Start: 06/27/20 08:14 Freq: Status: Active Protocol: Document 10/03/20 15:07 AMB (Rec: 10/03/20 15:08 AMB [email or web address]) Physical Therapy Assessment Goals Three Impairment Functional activities Short Term Goal (STG) Yakov will walk for 1 mile with knee pain of 3/10 or less . STG Duration NOT MET Jail Goal (LTG) Yakov will lift 10# to shoulder height with pain of 3 /10 or less. LTG Duration NOT MET Two Impairment Knee ROM Short Term Goal (STG) Yakov will improve his L knee extension to missing 5 degrees. STG Duration NOT MET One Impairment Shoulder ROM Short Term Goal (STG) Mumtaz will improve his R shoulder PROM to 110 degrees of flexion. STG Duration NOT MET Physical Therapy Plan Discharge Physical Therapy Discharge Comments Mumtaz canceled his last two appointments and now has not been seen in about a month. He had made some improvements with his shoulder, but his back and knee continued to limit him at work.
== END 2020-10-06 11:51 | disposition home or self-care (01) ==
LOC: PHYS 15:15
PROVIDERS: PCP Student in an Organized Health Care Education/Training Program; Referring Provider Student in an Organized Health Care Education/Training Program; Visit Provider Student in an Organized Health Care Education/Training Program
DX: M25.569 Pain in unspecified knee (principal); M25.512 Pain in left shoulder; M25.511 Pain in right shoulder; M54.40 Lumbago with sciatica, unspecified side
CPT/HCPCS: 97014; 97110; 97140; 97162; G0283

== ENCOUNTER → 2021-02-11 15:51 | Outpatient (CLI) | payer OTHER, SELFPAY ==
--- NOTE | 2021-02-11 15:53 | DI.MRI.S_ITS ---
PROCEDURE: MR LUMBAR SPINE WO CON INDICATIONS: Low back and left leg pain TECHNIQUE: Noncontrast sagittal T1 spin echo and T2 fast echo, sagittal STIR, axial T1 and T2 fast spin echo through the lumbar spine. In cases with scoliosis, additional coronal T2 fast spin echo may be performed. COMPARISON: [facility], CR, XR LUMBAR SPINE 2-3V, 07/21/2018, 9:46. FINDINGS: Image quality: Excellent. Alignment and Curvature: There is minimal anterolisthesis seen at L4-L5. Bone Marrow: Marrow is of normal overall signal. No acute vertebral body compression fractures. Spinal Cord: Conus medullaris terminates at the L1 level. Visualized cord demonstrates normal signal and size. Paraspinous Soft Tissues: No paravertebral masses. Bridging anterior osteophytes are seen throughout the thoracolumbar region. T12-L1: Normal appearance. L1-L2: Normal appearance. L2-L3: No significant abnormality is seen. L3-L4: The disc height is well-preserved. Loss of disc signal is seen at this level. Bridging endplate osteophytes are seen. Mild generalized disc bulge is seen. Mild to moderate facet hypertrophy is seen. No significant neural foraminal or central canal narrowing can be seen. L4-L5: The disc height is well-preserved. Loss of disc signal is seen at this level. There is moderate right-sided and mild left-sided neural foraminal narrowing seen. Mild central canal narrowing is seen. L5-S1: The disc height is well-preserved. Loss of disc signal is seen at this level. Moderate disc bulge is seen, which is eccentric to the right. There is a superimposed central disc protrusion. A faintly seen annular fissure is present posteriorly, as on series 2, images 9 and 10. Moderate facet joint hypertrophy is seen. There is at least moderate left-sided and moderate right-sided neural foraminal narrowing seen. No significant central canal narrowing is seen. IMPRESSION: Lower lumbar spine degenerative changes are seen, which are worst at the L5-S1 level. Dictated by: Simon Mai M.D. on 02/11/2021 at 16:41 Approved by: Simon Mai M.D. on 02/11/2021 at 16:44
--- NOTE | 2021-02-11 15:53 | DI.MRI.S_ITS ---
PROCEDURE: MR SHOULDER RT WO CON INDICATIONS: Low back pain, right shoulder pain TECHNIQUE: Noncontrast oblique coronal T2 fast spin echo with fat saturation, oblique sagittal T1 spin echo and T2 fast spin echo with fat saturation, axial T1 spin echo and T2 fast spin echo with fat saturation through the shoulder. COMPARISON: None. FINDINGS: Rotator cuff: Supraspinatus and infraspinatus tendinopathy. Partial-thickness articular and bursal sided tear of the supraspinatus tendon with marked thinned appearance on image 5/10. No complete disruption identified. Infraspinatus thickening is also present with low-grade bursal surface fraying. Teres minor tendon appears intact. Subscapularis tendinopathy with low-grade articular surface fraying. No definite atrophy of the rotator cuff muscles although there is diffuse mild fatty infiltration. Bones and bursae: No bone marrow contusions or fractures. Bulky osteophyte formation. Severe hypertrophic acromioclavicular joint degeneration. Acromion demonstrates conventional anatomy, without an os acromiale. Mild subacromial-subdeltoid bursitis. Capsule and soft tissues: Labrum: Severe circumferential labral tear, with ill-defined amorphous signal changes. There is diffuse blunted appearance. Uniform near full-thickness articular cartilage loss of the glenohumeral joint. There is also spurring and sclerosis of the posterior glenoid rim. Subchondral small cystic change/marrow edema. Small 3 mm posterosuperior paralabral cysts. These are seen on image 18/10. Glenohumeral ligaments: Inferior and superior glenohumeral ligaments are intact. Biceps tendon: Long head of the biceps tendon intact. Rotator interval: Partial obliteration of the subcoracoid fat signal intensity. Coracohumeral ligament: Intact. IMPRESSION: Partial-thickness rotator cuff tear as above. Mild subacromial-subdeltoid bursitis Severe glenohumeral joint degeneration with associated circumferential chronic labral tear, and near full-thickness articular cartilage loss. There is probable superimposed chronic posterosuperior labral tear given the segmental predominance of the degenerative changes. Dictated by: Sheldon Hwang M.D. on 02/12/2021 at 8:37 Approved by: Sheldon Hwang M.D. on 02/12/2021 at 8:44
== END ==
PROVIDERS: PCP Student in an Organized Health Care Education/Training Program; Referring Provider Student in an Organized Health Care Education/Training Program; Visit Provider Student in an Organized Health Care Education/Training Program
DX: M47.817 Spondylosis without myelopathy or radiculopathy, lumbosacral region (principal); M75.111 Incomplete rotator cuff tear or rupture of right shoulder, not specified as traumatic; M19.011 Primary osteoarthritis, right shoulder; M75.51 Bursitis of right shoulder; M25.511 Pain in right shoulder; M54.50 Low back pain, unspecified; M79.605 Pain in left leg
CPT/HCPCS: 72148; 73221

== ENCOUNTER → 2021-09-28 08:00 | Outpatient (CLI) | payer OTHER, SELFPAY ==
--- NOTE | 2021-09-28 08:04 | DI.RAD.S_ITS ---
PROCEDURE: XR LUMBAR SPINE MIN 4V INDICATIONS: BACK PAIN TECHNIQUE: 5 views of the lumbar spine were acquired, including bilateral oblique views. COMPARISON: [facility], MR, MR LUMBAR SPINE WO CON, 02/11/2021, 16:31. [facility], CR, XR LUMBAR SPINE 2-3V, 07/21/2018, 9:46. FINDINGS: Bones: 5 nonrib-bearing vertebrae are present. There is normal bony alignment. No vertebral body compression fractures. No suspicious bony lesions. Multilevel anterior endplate osteophytes versus less likely syndesmophytes are seen throughout the lumbar spine with relatively mild disc space narrowing. Prominent facet hypertrophy is seen that is most pronounced at the L5-S1 level. Degenerative changes are seen in the hips bilaterally. There is partial ankylosis of the superior portions of the sacroiliac joints bilaterally with normal visualization of the more inferior sacroiliac joint spaces. Soft tissues: Overlying bowel gas pattern is normal. No suspicious soft tissue calcifications. Mild aortic atherosclerotic calcifications. Oblique images: No pars defects. IMPRESSION: No acute osseous abnormality. Multilevel spondylosis. Dictated by: Elijah Castanon M.D. on 09/28/2021 at 11:02 Approved by: Elijah Castanon M.D. on 09/28/2021 at 11:07
== END ==
PROVIDERS: PCP Student in an Organized Health Care Education/Training Program; Referring Provider Physical Medicine & Rehabilitation; Visit Provider Physical Medicine & Rehabilitation
DX: M47.816 Spondylosis without myelopathy or radiculopathy, lumbar region (principal); M51.27 Other intervertebral disc displacement, lumbosacral region; M17.0 Bilateral primary osteoarthritis of knee; M54.9 Dorsalgia, unspecified
CPT/HCPCS: 72110; 99214

== ENCOUNTER 2023-09-27 08:16 | Day surgery (SDC) | payer OTHER, SELFPAY ==
--- NOTE | 2023-09-27 | PATH_ITS ---
[facility] Accession Number: [id number] No. of containers..01 Tissue . 01 Material submitted: . colon - ASCENDING COLON POLYP . 01 Diagnosis: ASCENDING COLON, POLYP: Sessile serrated adenoma. MRV 09/29/2023 1423 Local . 01 Electronically signed: . Mallika Meyers MD, Pathologist NPI- [id number] . 01 Gross description: . Received in formalin with two patient identifiers and ascending colon, is a single hua soft tissue fragment 0.4 cm in greatest dimension. Submitted in cassette A1. ([id number]) /ADY 09/28/2023 0829 Local . 01 Pathologist provided ICD-10: D12.2 . 01 CPT . 106668 Specimen Comment: A courtesy copy of this report has been sent to [phone] Performed at: [address] [facility] [address], [place], [place] [id number] MD Kingsley He MD Phone: [phone]
[2023-09-27 08:50] VITALS: BP 105/72; PULSE 56; RESP 16; TEMP 36.4; O2SAT 97
[2023-09-27] MEDS: LACTATED RINGERS 1,000 ML 42 ML IV (08:50)
--- NOTE | 2023-09-27 09:07 | PM.HP.1 ---
History of Present Illness History of Present Illness Date Patient Seen: 09/27/23 Time Patient Seen: 09:07 Chief complaint: Screening Colonoscopy Narrative: 57-year-old man here for screening colonoscopy. Last colonoscopy 5 years ago notable for polyps. No family history of colon cancer. No abdominal concerns today. [facility] Medical History Degenerative joint disease of knee Facet arthropathy, lumbar Herniated nucleus pulposus, L5-S1 Back pain Knee pain Eczema (~1997) Shoulder pain Foot pain Ankle pain Tuberculosis (~1983) Positive PPD (~1983) Cataracts, bilateral (~2014) Diabetes mellitus Hypertension (~2014) Surgical History Anesthesia History of left knee surgery (~2003) History of left knee surgery (~1978) Family History Father Hyperlipidemia Hypertension Mother Hyperlipidemia Hypertension Brother Diabetes mellitus Hyperlipidemia Hypertension Social History Smoking Status: Current every day smoker Tobacco: How many years used: 32 alcohol intake: current Meds Home Medications and Allergies Home Medications Medication Instructions Recorded Confirmed Type hydrochlorothiazide 12.5 mg tablet 12.5 mg PO DAILY 07/18/18 09/27/23 History losartan 50 mg tablet 50 mg PO DAILY 07/18/18 09/27/23 History simvastatin 40 mg tablet 40 mg PO BEDTIME 07/18/18 09/27/23 History meloxicam 15 mg tablet (Mobic) 15 mg PO DAILY #30 tabs 08/09/18 09/27/23 Rx atenolol 50 mg tablet 50 mg PO DAILY 03/26/19 09/27/23 History sildenafil 25 mg tablet (Viagra) 25 mg PO PRN PRN Erectile 03/26/19 09/27/23 History Dysfunction citalopram 20 mg tablet 20 mg PO BEDTIME 09/28/21 09/27/23 History metformin 500 mg tablet,extended 500 mg PO BID 09/28/21 09/27/23 History release 24 hr Allergies Allergy/AdvReac Type Severity Reaction Status Date / Time lisinopril [LISINOPRIL] AdvReac Mild cough Verified 09/27/23 08:34 Exam Vital Signs (past 8 hours): - 09/27/23 08:50 Temperature 97.5 F L Pulse Rate 56 L Respiratory Rate 16 Blood Pressure 105/72 Pulse Oximetry 97 Oxygen Delivery Method Room Air Oxygen Delivery Method Room Air Narrative Exam Narrative: General adult man alert oriented no acute distress Chest nonlabored respiration Extremities warm well perfused Assessment & Plan Assessment & Plan narrative: The patient requires colorectal screening and colonoscopy is recommended. Technical details were discussed. Risks, benefits, alternatives explained. Risks including but not limited to myocardial infarction, aspiration, bleeding, pain, missed lesion, incomplete examination, need for further radiographic studies, intestinal injury, and need for major abdominal surgery were discussed. All questions were answered to their satisfaction, and they are in agreement with this plan. Time-Based Coding :: [TOTAL MINUTES] spent with patient and on the chart (including review of chart, obtaining history, exam, reviewing outside data, placing orders, documenting exam and treatment plan, and counseling patient) on [DATE].
[2023-09-27 09:36] VITALS: BP 88/48; PULSE 68; RESP 18; TEMP 36.2; O2SAT 96
--- NOTE | 2023-09-27 09:37 | P.OP.COLON_ITS ---
Operative Date/Time/Diagnoses Date of procedure: 09/27/23 Time of procedure: 09:37 Pre-op diagnosis: Colorectal screening Post-op diagnosis: other (Colonic polyp x1) Procedure & Clinicians Study performed: Screening colonoscopy and polypectomy Same procedure as scheduled: Yes Indications: Colorectal screening Surgeon: Erlin Padilla Procedure Notes Procedure in detail: The history and physical was performed/updated and the patient is ASA class is 2. The procedure was discussed in detail with the patient. Potential risks complications including infection, bleeding, missed diagnosis, perforation, need for surgery, and were explained. Their questions were answered and informed consent was obtained. Patient was brought to the procedure room and placed standard monitoring equipment. The patient's vital signs were monitored continuously throughout the entire procedure. Prior to starting time-out was performed. The patient was placed in the left lateral recumbent position. Procedural sedation was administered by anesthesia. Examination began with a thorough inspection of the perianal area there was no evidence of fissures, fistulae, external hemorrhoids or cutaneous malignancy. The colonoscopy scope was then placed into the anal canal and was advanced to the cecum, which was identified by the ileocecal valve, the appendiceal orifice and the confluence of the taenia. The scope was then slowly withdrawn examining colon thoroughly in all directions, irrigating it of any residual stool. The scope was retroflexed within the rectum The patient tolerated the procedure well. They will be discharged once criteria are met. The prep was of fair quality. The withdrawl time was 7 minutes. FINDINGS * Ascending colon-3 mm polyp removed with biopsy forceps * Mild diverticulosis of descending colon Findings: divertiulosis Specimen(s): other (Ascending colon polyp) Impression: Colonic polyp x1 Post-procedure Recommendations: High fiber diet Plan for aftercare: Follow-up is dependent on pathology findings likely 5 years Disposition: same day surgery
[2023-09-27 09:41] VITALS: BP 80/49; PULSE 55; RESP 18; O2SAT 95
[2023-09-27 09:46] VITALS: BP 101/63; PULSE 55; RESP 16; TEMP 36.3; O2SAT 97
[2023-09-27 09:50] VITALS: BP 104/76; PULSE 53; RESP 16; O2SAT 96
== END 2023-09-27 10:10 | disposition home or self-care (01) ==
PROVIDERS: PCP Student in an Organized Health Care Education/Training Program; Referring Provider Surgery; Visit Provider Surgery
PROC: 0DJD8ZZ Inspection of Lower Intestinal Tract, Via Natural or Artificial Opening Endoscopic (ICD-10-PCS; CPT 45378; principal; 2023-09-27 09:15)
DX: Z12.11 Encounter for screening for malignant neoplasm of colon (principal); K57.30 Diverticulosis of large intestine without perforation or abscess without bleeding; D12.2 Benign neoplasm of ascending colon
CPT/HCPCS: 45380; J2704